=== PATIENT | female | born 1975 | race Caucasian/White ===

== ENCOUNTER 2020-05-02 00:28 | Outpatient (CLI) | payer OTHER, SELFPAY ==
[2020-05-03 01:24] LABS: SARS-CoV-2 RNA PCR Negative
== END 2020-05-02 00:29 | disposition home or self-care (01) ==
LOC: ANHCOVIDDT 00:28
PROVIDERS: PCP Nurse Practitioner; Visit Provider Surgery Plastic and Reconstructive Surgery
DX: Z01.812 Encounter for preprocedural laboratory examination (principal); Z20.828 Contact with and (suspected) exposure to other viral communicable diseases
CPT/HCPCS: 87635; C9803; U0003

== ENCOUNTER 2020-05-05 01:46 | Day surgery (SDC) | payer OTHER, SELFPAY ==
[2020-05-04 09:33] VITALS: BMI 23.3
[2020-05-05] VITALS (9 sets, daily range): BP systolic 104–128; BP diastolic 54–78; PULSE 60–99; RESP 12–20; TEMP 36.4; O2SAT 100; BMI 23.9
[2020-05-05 10:00] LABS: Urine Cotinine NEGATIVE
[2020-05-05] MEDS: LACTATED RINGERS 1,000 ML 30 ML IV CONT ×2 (10:05→15:14)
--- NOTE | 2020-05-05 10:11 | WPDANESEPPF ---
Anes - Initial Pre Proc Eval Procedure: Operation Date: 05/05/20 11:30 Proposed Procedures p Bilateral Breast Implant Exchange with Capsulectomy - Ronnie Mcghee MD s Bilateral Breast Mastopexy - Ronnie Mcghee MD Date/Time: 05/05/20 10:11 Surgeon: Ronnie Mcghee MD Pre Op Diagnosis: bilat breast implant rupture Patient Data Age: 45 Gender: F Height: 1.68 m Weight: 67.2 kg Last Vital Signs Temp 36.4 C L 05/05/20 09:47 Pulse 66 05/05/20 09:47 Resp 16 05/05/20 09:47 BP 104/54 L 05/05/20 09:47 Pulse Ox 100 05/05/20 09:47 Allergies Allergy/AdvReac Type Severity Reaction Status Date / Time No Known Allergies Allergy Verified 05/05/20 09:36 Home Medications Medication Instructions Recorded Confirmed Type levothyroxine 25 mcg tablet 25 mcg PO DAILY 03/23/20 05/05/20 History Laboratory Tests 05/05/20 09:40 Cotinine Negative Patient hx anesthesia problems: none Family hx anesthesia problems: none PMFSH Surgical History Surgical History History of breast augmentation History of Social History Social History Smoking status: Never smoker Alcohol intake: current Drinks per week: 2 Living arrangements: with family Spiritual care concerns: No Anes - Eval Final PreProcedure Day of Procedure 05/05/20 10:11 Patient weight: normal Heart: regular rate and rhythm Lungs: clear to auscultation and normal air movement Airway: Mallampati scale class II Neurological: alert and oriented Last oral intake: >/= 8 hours ASA classification: II Emergent: no Anesthetic plan: proceed Anesthesia type and monitoring: general LMA and standard monitoring Informed Consent: The patient's anesthetic plan and its attendant risks and benefits were discussed with the patient/family/POA. Questions were solicited and answers provided to the satisfaction of the patient/family/POA.
--- NOTE | 2020-05-05 11:10 | WPDHPUPDATE1 ---
History and Physical Update Update Date/Time: 05/05/20 11:10 History and Physical has been reviewed, including an updated exam of the patient. There are NO changes in the patient's condition. Risks, benefits, and alternatives have been discussed and questions answered. Patient agrees to proceed with procedure.
--- NOTE | 2020-05-05 11:33 | PM.PROC ---
Procedure Note - Detailed Date of procedure: 05/05/20 Pre-op diagnosis: bilat breast implant rupture Post-op diagnosis: same Procedure performed: Bilateral breast implant exchange with mastopexy. Description of procedure: Risks, benefits, alternatives were discussed in extensive detail. I want her to be very realistic about the risks involved as well as expectations. I was very up front honest about the complexity implant exchange for smaller implants and concurrent mastopexy. She states these are textured implants and if there are in fact textured she would want to send the capsule to pathology. She understands this will be at her charge and is above in be on the turner she has paid. All questions answered to her satisfaction today and consent obtained. She was marked in the preoperative holding area with her verification. She was taken to the operating room placed supine on the operating room table. Anesthesia was provided by anesthesiology and prepped and draped in standard sterile fashion. Surgical time-out was taken. 1% lidocaine and 0.25% Marcaine with epinephrine was used to provide a field block. Tegaderm nipple Patrick were placed. I incised vertically along the inferior aspect of the breast and dissection was continued down to the implant was identified. Bilateral implants were ruptured and removed. I irrigated with 3 liters of bacitracin containing saline on TUR tubing. I dissected removing as much of the capsule as I was able to safely. This was sent to pathology. I cauterized any remaining capsule. I then irrigated copiously with 3 L of saline solution on TUR tubing. Once I verified hemostasis irrigated with triple antibiotic Betadine solution. Using a no-touch technique and a Khan funnel the implant was introduced into the pocket. I closed using 2-0 Vicryl. I then tailor tacked the breast into place. This was limited by a significantly pre-op stretched areola from previous mastopexy in an effort to remove all residual areola. She was placed her in a sitting position. I marked out my nipple-areolar complex based on intraoperative measurements preoperative markings and observations which were in full agreement. She was placed supine. I de-epithelialized superior pedicle bilateral. She does have a history of a periareolar mastopexy which was discussed with her before and she is aware there are risks with repeat mastopexy. I then removed a central keel left breast as well as inferior tissue leaving the implant well covered. Again copiously irrigated and verified strict hemostasis. I closed using 2-0 Vicryl along the vertical as well as along the IMF followed by 3-0 strata fix IMF and 3-0 Monocryl along the vertical and around the areola. Finally closed with running subcuticular 4-0 Monocryl and tissue glue. Dressings were placed. She was awoke and taken to the PACU without difficulty. All instrument sponge counts were correct at the end of the case. Anesthesia: GLMA Surgeon: Ronnie Mcghee MD Estimated blood loss (mL): 100 Drains: No Packing: No Pathology: yes (Bilateral breast capsule) Complications: No immediate complications Condition: stable Disposition: PACU Findings: Partial capsulectomy bilateral (densely adherent to pec muscle / chest wall) Previous implants - bilateral ruptured Previous implants right: 400 left: 375 Inverted T superior pedicle mastopexy Bilateral [place] [employer] Implants Right: 320cc REF [id number] SN [id number] Left: 300cc REF [id number] SN [id number]
[2020-05-05] MEDS: ceFAZolin 2 GM/D5W 50 ML 2 GM/50 ML BAG IVPB (11:52)
[2020-05-05] MEDS: LIDO 1%/EPINEPHRINE 1:100,000 20 ML VIAL 30 ML INFILTRATE (12:42)
--- NOTE | 2020-05-05 13:01 | SUR.OPER ---
RIGHT BREAST CAPSULE LEFT BREAST CAPSULE-BOTH FOR PERMANENT PATHOLOGY
[2020-05-05] MEDS: fentaNYL CITRATE INJ (*CRX) 100 MCG/2 ML VIAL 25 MCG IV PUSH ×2 (15:39→15:44)
[2020-05-05] MEDS: oxyCODONE HCL (*CRX) 5 MG TAB IR PO (16:26)
== END 2020-05-05 17:30 | disposition home or self-care (01) ==
PROVIDERS: PCP Nurse Practitioner; Visit Provider Surgery Plastic and Reconstructive Surgery
PROC: (CPT 19342; principal; 2020-05-05 11:30)
PROC: (CPT 19316; 2020-05-05 11:30)
DX: T85.41XA Breakdown (mechanical) of breast prosthesis and implant, initial encounter (principal); Y83.8 Other surgical procedures as the cause of abnormal reaction of the patient, or of later complication, without mention of misadventure at the time of the procedure; E03.9 Hypothyroidism, unspecified
CPT/HCPCS: 19371; 19340; 80307; 88304; A9270; J0690; J1100; J1170; J1580; J2250; J2405; J2704; J3010; J7120

== ENCOUNTER → 2020-05-21 12:16 | Outpatient (REF) | payer BC, SELFPAY | LOC: ANHLAB 12:16 | PROVIDERS: PCP Nurse Practitioner; Visit Provider Surgery Plastic and Reconstructive Surgery | DX: C44.1122 Basal cell carcinoma of skin of right lower eyelid, including canthus (principal) | CPT/HCPCS: 88305 ==

== ENCOUNTER → 2020-07-06 10:21 | Outpatient (REF) | payer BC, SELFPAY | LOC: ANHLAB 10:21 | PROVIDERS: PCP Nurse Practitioner; Visit Provider Nurse Practitioner | DX: C44.1122 Basal cell carcinoma of skin of right lower eyelid, including canthus (principal) | CPT/HCPCS: 88305; 88331 ==

== ENCOUNTER → 2021-05-21 11:36 | Outpatient (CLI) | payer BC, SELFPAY ==
--- NOTE | ~2021-05-21 | XR_ITS ---
EXAMINATION: XR wrist LT 2V DATE: 05/21/2021 12:04 INDICATION: Left wrist pain TECHNIQUE: Posteroanterior and lateral views of the left wrist were obtained. COMPARISON: none FINDINGS: Bone alignment is normal. Cortical thickening along the radial side of the distal left radial diaphys is likely related to reported chronic radial fracture. No acute fracture identified. Joint spaces are normal. Ossicle near the tip of the ulnar styloid process which could represent a chronic nonunited avulsion fracture fragment, degenerative loose body or heterotopic ossicles related to chronic soft t issue injury. IMPRESSION: 1. No acute osseous abnormality. Reviewed, dictated and finalized at location B. DATION SCIENTIST
== END ==
PROVIDERS: PCP Nurse Practitioner; Visit Provider Nurse Practitioner
DX: M25.532 Pain in left wrist (principal); M67.40 Ganglion, unspecified site
CPT/HCPCS: 73100

== ENCOUNTER 2022-06-30 14:30 | Outpatient (RCR) | payer BC, SELFPAY ==
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
--- NOTE | 2022-06-15 18:00 | PCPTNOTE ---
Patient did not show up for scheduled appointment this date.
--- NOTE | 2022-06-30 15:12 | PTOPDC ---
Assessment and note entered by Lila Teixeira DPT Evaluation Information Assessment Status Discharge Subjective Information Highest pain in the last week 5/10 after twisting her knee at [employer]. Lowest pain 3/10. Overall feels that her pain has significantly decreased, her motion and ability to do ADL's has gotten a lot better. Still feels unsteady with navigating stairs. Surgery 07/07/22. Reported Pain Level Pain Score 3: Self Report Assessment PT Clinical Summary The patient has made good progress in therapy in following ACL tear and preparation for surgery. She demonstrates improved knee flexion to 129 degrees, improved balance and gait speed. Due to her progress and scheduled surgery next week, plan to discharge this case today. Plan of Care PT Services Indicated No
== END 2022-07-01 10:29 | disposition home or self-care (01) ==
LOC: ANHPT 14:30
PROVIDERS: PCP Nurse Practitioner
DX: S83.511D Sprain of anterior cruciate ligament of right knee, subsequent encounter (principal)
CPT/HCPCS: 97110; 97161; 97530

== ENCOUNTER 2022-08-19 09:45 | Outpatient (RCR) | payer BC, SELFPAY ==
--- NOTE | 2022-07-20 11:42 | PTOPEVAL1 ---
Assessment and note entered by Samuel Rosen, PT Evaluation Information Assessment Status Evaluation Diagnosis R ACL repair Onset 07/15/22 Subjective Information Patient reports she is doing okay with most activities, besides stair climbing. She is doing exercises given to her prior to surgery, mainly: straight leg lifts, heel slides with belt and wall slides, and quads sets. Reported Pain Level Pain Score 3: Self Report Assessment PT Clinical Summary Nikki is a 47 year old female coming into the clinic for a R ACL reconstruction. She has 0-3- 110 degrees of R knee active range of motion with good strength in the quads, with a little warm up on the bike can get to 120 degrees flexion. Will work on strengthening and range of motion, progressing from open chain to close chain as patient tolerates it. Patient does appear motivated. Plan of Care Interventions Electrical Stimulation,Gait Training,Hot Pack/Cold Pack,Manual Therapy,Neuro Re-education,Patient/ Caregiver Education,Therapeutic Activities, Therapeutic Exercise,Ultrasound PT Services Indicated Yes Treatment Frequency and 2x/wk for 6 weeks Duration These treatments will address the objective and functional deficits as defined above. The patient will be advanced safely and appropriately in order for the patient to progress towards his/her prior level of function. Additional exercises will be introduced and as well as a comprehensive home exercise program upon discharge, if needed, ?to ensure carryover of functional gains achieved in the clinic. This treatment plan has been reviewed and agreement upon by the patient.
--- NOTE | 2022-07-26 15:42 | PTOPPROG ---
Assessment and note entered by Samuel Rosen, PT Evaluation Information Assessment Status Progress Diagnosis R ACL repair Onset 07/15/22 Subjective Information Patient reports returning back to work yesterday and that the leg was very swollen and sore after working a full day. Patient reports prior to that had 3 great days with no issues sleeping and feeling the knee was cooperating well. Self reports she has been taking the steps sidestepping . Instructed her to do straight away even if she has to do single steps at a time. Assessment PT Clinical Summary Nikki is a 47 year old female coming into the clinic for a R ACL repair surgery. She has 1-0- 121 active degrees once she loosens up. Will start progressing into more standing exercises and working on step ups, terminal knee extension with light thera band, and squats. Plan of Care Interventions Electrical Stimulation,Gait Training,Hot Pack/Cold Pack,Manual Therapy,Neuro Re-education,Patient/ Caregiver Education,Therapeutic Activities, Therapeutic Exercise,Ultrasound Other Interventions taping PT Services Indicated Yes These treatments will address the objective and functional deficits as defined above. The patient will be advanced safely and appropriately in order for the patient to progress towards his/her prior level of function. Additional exercises will be introduced and as well as a comprehensive home exercise program upon discharge, if needed, ?to ensure carryover of functional gains achieved in the clinic. This treatment plan has been reviewed and agreement upon by the patient.
--- NOTE | 2022-08-03 08:52 | PCPTNOTE ---
discussed pt with Samuel Baer PT; intermittent compression pump added to plan of treatment for pt;
--- NOTE | 2022-08-23 09:18 | PTOPDC ---
Assessment and note entered by Samuel Rosen, PT Evaluation Information Assessment Status Discharge - Pt Not Presen Diagnosis R ACL repair Onset 07/15/22 Subjective Information Patient reports returning back to work yesterday and that the leg was very swollen and sore after working a full day. Patient reports prior to that had 3 great days with no issues sleeping and feeling the knee was cooperating well. Self reports she has been taking the steps sidestepping . Instructed her to do straight away even if she has to do single steps at a time. Assessment PT Clinical Summary Nikki is a 47 year old female coming into the clinic with a diagnosis of R ACL repair on 07/15/22. She was evaluated on 07/20/22 and has attended 9 physical therapy sessions. Physical therapist recieves a phone message that she is cancelling all remaining sessions and going to a clinic with blood flow restriction therapy. Discharged from skilled physical therapy. Plan of Care PT Services Indicated Yes
== END 2022-08-23 15:25 | disposition home or self-care (01) ==
LOC: ANHPT 09:45
PROVIDERS: PCP Nurse Practitioner
DX: Z48.89 Encounter for other specified surgical aftercare (principal); Z98.890 Other specified postprocedural states
CPT/HCPCS: 97016; 97110; 97112; 97140; 97161; 97530

== ENCOUNTER 2022-08-19 12:42 | Outpatient (CLI) | payer BC, SELFPAY ==
[2022-08-19 13:13] LABS: Basophils Absolute Auto 0.1 K/mm3 (0.0-0.1); Basophils Percent Auto 1.4 % (0.2-1.2); Eosinophils Absolute Auto 0.1 K/mm3 (0-0.3); Hematocrit 39.4 % (37.0-47.0); Hemoglobin 12.9 g/dL (12.0-15.0); Immature Granulocyte Absolute 0.01 K/mm3 (0.00-0.031); Immature Granulocyte Percent A 0.2 % (0-0.5); Lymphocytes Absolute Auto 0.98 K/mm3 (0.9-3.2); Lymphocytes Percent Auto 19.7 % (18.3-44.2); Mean Corpuscular HGB Conc 32.7 g/dl (32-36); Mean Corpuscular Hemoglobin 30.6 pg (26-34); Mean Corpuscular Volume 93.6 fl (80-100); Mean Platelet Volume 10.2 fl (7.4-10.4); Monocytes Absolute Auto 0.5 K/mm3 (0.1-0.6); Monocytes Percent Auto 9.1 % (2.6-8.5); Neutrophils Absolute Auto 3.4 K/mm3 (1.3-6.7); Neutrophils Percent Auto 67.6 % (45.5-73.1); Platelet Count Result 249 k/mm3 (150-375); Red Blood Count 4.21 M/mm3 (4.2-5.4); Red Cell Distribution Width 12.4 % (11.5-14.5)
[2022-08-19 13:16] LABS: Appearance Urine Clear (Clear); Bacteria Urine Rare /hpf; Bilirubin Urine Negative (Negative); Blood Urine 1+ (Negative); Color Urine Yellow (Yellow); Glucose Urine UA Negative (Negative); Ketones Urine Trace mg/dL (Negative); Leukocyte Esterase Ur Negative LEU/UL (Negative); Nitrate Urine Negative (Negative); Non Pathogenic Casts 0-2; Protein Urine Negative (Negative); Specific Grav Ur 1.023 (1.001-1.035); Squamous Epithelial Cell Urine None seen /hpf (Few); Urobilinogen Urine 0.2 mg/dL (<2.0); WBC Urine 0-5 /hpf; pH Urine 5.5 (5.0-9.0)
[2022-08-19 13:25] LABS: Alanine Aminotransferase 19 U/L (6-35); Albumin Level 4.6 g/dL (3.5-5.1); Alkaline Phosphatase 39 U/L (38-126); Anion Gap 5 mmol/L (8-16); Aspartate Amino Transferase 27 U/L (14-36); Bilirubin,Total 1.5 mg/dL (0.2-1.3); Blood Urea Nitrogen 13 mg/dL (7-17); Calcium 9.1 mg/dL (8.4-10.2); Carbon Dioxide 30 mmol/L (22-30); Chloride 104 mmol/L (98-107); Cholesterol 149 mg/dL (0-200); Estimated Glomerular Filt Rate > 60; Glucose 87 mg/dL (65-110); HDL Direct 57 mg/dL; Potassium 4.1 mmol/L (3.4-5.0); Sodium 139 mmol/L (137-145); Triglycerides 58 mg/dL (<150)
[2022-08-19 13:36] LABS: LDL Cholesterol Direct 68 mg/dL
[2022-08-19 13:44] LABS: Free T4 Free Thyroxine 0.85 ng/mL (0.78-2.19); Vitamin D 25 Hydroxy 44.5 ng/mL
[2022-08-19 14:55] LABS: Add Urine Microscopic? YES
== END 2022-08-19 12:43 | disposition home or self-care (01) ==
PROVIDERS: PCP Internal Medicine; Visit Provider Internal Medicine
DX: Z79.899 Other long term (current) drug therapy (principal); E03.9 Hypothyroidism, unspecified; Z13.220 Encounter for screening for lipoid disorders; Z13.1 Encounter for screening for diabetes mellitus; E55.9 Vitamin D deficiency, unspecified
CPT/HCPCS: 36415; 80053; 80061; 81001; 82306; 83036; 84439; 84443; 85025

== ENCOUNTER 2022-08-22 14:54 | Outpatient (CLI) | payer BC, SELFPAY ==
--- NOTE | ~2022-08-22 | US_ITS ---
EXAMINATION: US thyroid DATE: 08/22/2022 15:36 INDICATION: Hypothyroidism, unspecified. TECHNIQUE: Multiple ultrasound images of the thyroid were obtained. COMPARISON: None. FINDINGS: The right thyroid lobe measures 5.3 x 2.1 x 2.1 cm. The left thyroid lobe measures 4.6 x 1.8 x 1.7 c m. The thyroid demonstrates heterogeneous echogenicity and increased vascularity. In the right thyro id lobe, there is a 9 mm solid, hypoechoic, wider than tall nodule with smooth margin without echogen ic foci (TI-RADS TR4). In the left thyroid lobe, there is a 16 mm solid, hypoechoic, wider than tall nodule with smooth margin without echogenic foci (TR4). IMPRESSION: 1. Heterogeneous, hypervascular thyroid, consistent with chronic lymphocytic (Ofelia) thyroiditis. 2. Thyroid nodules. Ultrasound-guided fine-needle aspiration of the 16 mm left thyroid nodule is yola mmended. Reviewed, dictated and finalized at location A. IMPRESSION: 1. Heterogeneous, hypervascular thyroid, consistent with chronic lymphocytic (H ashimoto) thyroiditis. 2. Thyroid nodules. Ultrasound-guided fine-needle aspiration of the 16 mm left thyroid nodule is recommended.
== END 2022-08-22 14:55 | disposition home or self-care (01) ==
PROVIDERS: PCP Internal Medicine; Visit Provider Internal Medicine
DX: E04.2 Nontoxic multinodular goiter (principal)
CPT/HCPCS: 76536

== ENCOUNTER 2022-08-23 13:26 | Outpatient (CLI) | payer BC, SELFPAY ==
[2022-08-26 06:08] LABS: Thyroglobulin Antibodies 4 IU/mL (<=1); Thyroid Peroxidase Antibodies 97 IU/mL (<9)
== END 2022-08-23 13:27 | disposition home or self-care (01) ==
LOC: ANHLAB 13:28
PROVIDERS: PCP Internal Medicine; Visit Provider Internal Medicine
DX: E03.9 Hypothyroidism, unspecified (principal); Z79.899 Other long term (current) drug therapy
CPT/HCPCS: 36415; 84432; 86376; 86800

== ENCOUNTER 2022-08-29 14:45 | Outpatient (CLI) | payer BC, SELFPAY ==
--- NOTE | ~2022-08-29 | CT_ITS ---
EXAMINATION: CT abdomen pelvis wo con DATE: 08/29/2022 15:32 INDICATION: Hematuria TECHNIQUE: Computed tomography (CT) of the abdomen and pelvis was performed without intravenous contr ast. Automated exposure control and iterative reconstruction technique were employed. Exam dose: 636 .93 mGy-cm total exam DLP. COMPARISON: None. FINDINGS: Status post bilateral augmentation mammoplasty. Minimal discoid atelectasis or scarring at the lung bases. Heart size is within normal range. No nitza cardial or pleural effusion. The gallbladder is contracted. No bile duct or pancreatic duct dilatation. No hepatic, splenic, pancr eatic, and adrenal or renal space-occupying mass lesion is evident. No urinary tract calculus or hydroureteronephrosis. There is an IUD within the uterus. The adnexal areas appear normal. The urinary bladder is unremarkab le. Normal appendix. No bowel obstruction, bowel wall thickening, pneumatosis or intraperitoneal free air . Normal caliber of the abdominal aorta. No intraperitoneal or retroperitoneal or pelvic mass lesion or adenopathy or ascites. No suspicious osteolytic or osteoblastic lesions. Moderately severe L2-3 degenerative disc disease wi th prominent superior L3 Schmorl's node. Mild disease and retrolisthesis at L3-4, L4-5 and L5-S1. IMPRESSION: No urinary tract calculus or hydroureteronephrosis or urinary tract mass lesion is evide nt on this limited noncontrast examination Normal appendix IUD within uterus Reviewed, dictated and finalized at Location A. Reviewed, dictated and finalized at location B. IMPRESSION: No urinary tract calculus or hydroureteronephrosis or urinary trac t mass lesion is evident on this limited noncontrast examination Normal appendix IUD within uterus
== END 2022-08-29 14:46 | disposition home or self-care (01) ==
PROVIDERS: PCP Internal Medicine; Visit Provider Internal Medicine
DX: R31.9 Hematuria, unspecified (principal); Z97.5 Presence of (intrauterine) contraceptive device
CPT/HCPCS: 74176

== ENCOUNTER 2022-09-14 11:01 | Emergency (ER) | payer BC, SELFPAY ==
--- NOTE | ~2022-09-14 | US_ITS ---
EXAMINATION: US venous doppler LE RT DATE: 09/14/2022 11:45 INDICATION: Right calf pain and swelling. TECHNIQUE: Grayscale ultrasound images without and with compression and Doppler ultrasound images of the right lower extremity veins were obtained. COMPARISON: None. FINDINGS: The visualized portions of right common femoral vein, profunda (deep) femoral vein, femoral vein, pop liteal vein, peroneal veins, posterior tibial veins, and greater saphenous vein outflow are patent. IMPRESSION: 1. No deep venous thrombosis. Reviewed, dictated and finalized at location A.
[2022-09-14 11:09] VITALS: BP 111/50; PULSE 67; RESP 14; TEMP 36.5; O2SAT 100
--- NOTE | 2022-09-14 11:56 | ED.EXTPRO ---
HPI - Extremity Problem General Chief complaint: Extremity Problem,Nontraumatic <Larykrystal Jara APRN - Last Filed: 09/14/22 12:25> Stated complaint: right calf pain and swelling - recent ACL repair <Lary Jara APRN - Last Filed: 09/14/22 12:25> Time Seen by Provider: 09/14/22 11:17 <Lary Jara APRN - Last Filed: 09/14/22 12:25> Source: patient <Lary aKy Jara APRN - Last Filed: 09/14/22 12:25> Mode of arrival: ambulatory <Lary Jara APRN - Last Filed: 09/14/22 12:25> Limitations: no limitations <Lary Jara APRN - Last Filed: 09/14/22 12:25> History of Present Illness HPI Narrative: 47-year-old female presents today with complaints of right calf swelling and tenderness. Patient with ACL surgery about [address] [facility]. She has been having physical therapy twice a week since. Denies any new knee pain or any new injury. States the swelling started Monday she has elevated and iced the extremity. Saw PT today who recommended she get evaluated for a blood clot. Per patient she has had tenderness to the calf for a while and she is unsure how long just the swelling was new. Denies any chest pain, shortness of breath, tachycardia. No other concerns at this time. Wells' Criteria for DVT from [email or web address] on 09/14/2022 All calculations should be rechecked by clinician prior to use RESULT SUMMARY: 2 points Moderate risk group for DVT. See Next Steps for details. INPUTS: Active cancer ?> 0 = No Bedridden recently >3 days or major surgery within 12 weeks ?> 1 = Yes Calf swelling >3 cm compared to the other leg ?> 1 = Yes Collateral (nonvaricose) superficial veins present ?> 0 = No Entire leg swollen ?> 0 = No Localized tenderness along the deep venous system ?> 0 = No Pitting edema, confined to symptomatic leg ?> 0 = No Paralysis, paresis, or recent plaster immobilization of the lower extremity ?> 0 = No Previously documented DVT ?> 0 = No Alternative diagnosis to DVT as likely or more likely ?> 0 = No <Lary Jara APRN - Last Filed: 09/14/22 12:25> MD Complaint: extremity pain and extremity swelling <Lary Jara APRN - Last Filed: 09/14/22 12:25> Location: right and lower extremity <Lary Jara APRN - Last Filed: 09/14/22 12:25> Quality: aching <Lary Jara APRN - Last Filed: 09/14/22 12:25> Radiation: none <Lary Jara APRN - Last Filed: 09/14/22 12:25> Relieving factors: nothing <Lary Jara APRN - Last Filed: 09/14/22 12:25> Related Data Allergies/Adverse reactions: Allergies Allergy/AdvReac Type Severity Reaction Status Date / Time No Known Allergies Allergy Verified 09/14/22 11:17 <Lary Jara APRN - Last Filed: 09/14/22 12:25> Review of Systems Review of Systems: CONSTITUTIONAL: Denies fever, chills, or sweats. CARDIOVASCULAR: Denies chest pain, palpitations, or edema. RESPIRATORY: Denies cough or dyspnea. GASTROINTESTINAL: Denies abdominal pain, nausea, vomiting, or diarrhea. GENITOURINARY: Denies dysuria or hematuria. SKIN: Denies rash or itching. MUSCULOSKELETAL: Right calf swelling with tenderness. <Lary Jara APRN - Last Filed: 09/14/22 12:25> [facility] Past Medical History Medical History: Medical History Adult BMI 25.0-25.9 kg/sq m BMI 24.0-24.9, adult Colon cancer screening Encounter for preventive health examination Encounter to establish care Hypothyroidism (acquired) On terminal superintendent drug therapy Thyroid Nodule <Lary Jara APRN - Last Filed: 09/14/22 12:25> Surgical History Surgical History: Surgical History History of breast augmentation History of S/P ACL repair <Lary Jara APRN - Last Filed: 09/14/22 12:25> Social History Social History: Social History (Reviewed 09/12/22 @ 07:15 by Katey Warner,
== END 2022-09-14 12:15 | disposition home or self-care (01) ==
LOC: ANHED 12:12
PROVIDERS: Emergency Provider Nurse Practitioner Family; PCP Internal Medicine
DX: R22.41 Localized swelling, mass and lump, right lower limb (principal); E03.9 Hypothyroidism, unspecified
CPT/HCPCS: 93971; 99284

== ENCOUNTER 2022-10-03 12:14 | Outpatient (CLI) | payer BC, SELFPAY ==
--- NOTE | ~2022-10-03 | US_ITS ---
EXAMINATION: US FNA w image guidance DATE: 10/03/2022 13:19 INDICATION: Nontoxic single thyroid nodule. TECHNIQUE: The procedure and its benefits and risks were discussed with the patient. Risks specifically discusse d included bleeding. The patient verbalized understanding of the risks and agreed to proceed. The nec k was prepped and draped in the usual sterile manner. 1% lidocaine was used for local anesthesia. 6 passes were made with a 25G needle into the lesion under ultrasound guidance. There were no immedia te complications. FINDINGS: Grayscale ultrasound images demonstrate needles advanced into a 16 mm nodule in left thyroid lobe for biopsy. IMPRESSION: 1. Ultrasound-guided fine needle aspiration of a left thyroid nodule. Reviewed, dictated and finalized at location A.
== END 2022-10-03 12:15 | disposition home or self-care (01) ==
PROVIDERS: PCP Internal Medicine; Visit Provider Otolaryngology
DX: E04.1 Nontoxic single thyroid nodule (principal)
CPT/HCPCS: 10005; 88173; 88305

== ENCOUNTER 2023-01-25 12:40 | Outpatient (CLI) | payer BC, SELFPAY ==
--- NOTE | ~2023-01-25 | US_ITS ---
EXAMINATION: US FNA w image guidance DATE: 01/25/2023 13:37 INDICATION: Nontoxic single thyroid nodule. TECHNIQUE: The procedure and its benefits and risks were discussed with the patient. Risks specifically discusse d included bleeding. The patient verbalized understanding of the risks and agreed to proceed. The nec k was prepped and draped in the usual sterile manner. 1% lidocaine was used for local anesthesia. 6 passes were made with a 25G needle into the lesion under ultrasound guidance. There were no immedia te complications. FINDINGS: Grayscale ultrasound images demonstrate needles advanced into a 1.7 cm nodule in left thyroid lobe fo r biopsy. IMPRESSION: 1. Ultrasound-guided fine needle aspiration of a left thyroid nodule. Reviewed, dictated and finalized at location A.
== END 2023-01-25 12:41 | disposition home or self-care (01) ==
LOC: ANHIMG 12:42
PROVIDERS: PCP Internal Medicine; Visit Provider Otolaryngology
DX: E04.1 Nontoxic single thyroid nodule (principal)
CPT/HCPCS: 10005; 88173; 88305

== ENCOUNTER 2023-02-03 11:46 | Outpatient (CLI) | payer BC, SELFPAY | END 2023-02-03 11:47 | disposition home or self-care (01) | LOC: ANHLAB 11:47 | PROVIDERS: PCP Internal Medicine; Visit Provider Internal Medicine | DX: E03.9 Hypothyroidism, unspecified (principal) | CPT/HCPCS: 36415; 84439; 84443 ==

== ENCOUNTER 2023-03-17 13:14 | Outpatient (CLI) | payer BC, SELFPAY ==
--- NOTE | ~2023-03-17 | US_ITS ---
US soft tissue UE LT 03/17/2023 13:40 Indication: Left volar wrist mass Procedure: High-resolution Limited soft tissue ultrasound of the left wrist laterally in the area of palpable concern Comparison: No prior studies for comparison. Findings: There is fluid in the soft tissues in the area of palpable concern without discrete walled off fluid collection to suggest cyst or abscess. Surrounding soft tissues are unremarkable. Impression: 1: Soft tissue fluid in the area of palpable concern of the left wrist without discrete mass. Reviewed, dictated and finalized at location A. Impression: 1: Soft tissue fluid in the area of palpable concern of the left wrist without discrete mass.
== END 2023-03-17 13:15 ==
LOC: GOSHIMG 13:16
PROVIDERS: PCP Internal Medicine; Visit Provider Plastic Surgery
DX: M67.432 Ganglion, left wrist (principal)
CPT/HCPCS: 76882

== ENCOUNTER 2023-05-05 02:56 | Day surgery (SDC) | payer BC, SELFPAY ==
[2023-05-02 12:16] VITALS: BMI 24.2
--- NOTE | 2023-05-02 12:20 | PC.NURSE ---
Report to the Outpatient Waiting Room, entrance under the green pavilion located off [facility], at time 0930 on date 05/05/23. Planned Procedure Time: 1130. Time changes happen often and if your time is changed the preop area will call you the afternoon before. - You and your visitor will be asked to self-screen and do not enter if you have any COVID symptoms. - A mask is optional within the hospital at this time. Patients may have clear liquids (water, carbonated beverages, clear teas, apple juice) until 3 hours prior to surgery with a maximum of 20 ounces. - No food from midnight until time of surgery Take the following medications with a SIP of water the morning of surgery: LEVOTHYROXINE DO NOT STOP ANY OF YOUR OTHER PRESCRIPTION MEDICATIONS PRIOR TO SURGERY ?EXCEPT THE FOLLOWING Medications to discontinue per physician: N/A Date to take last dose: N/A Please no make-up, nail maltese, hairspray, perfume, deodorant, or body powder the day of surgery. No jewelry (including any body piercings) or valuables the day of surgery, leave them at home. Please take a shower or bath the night before, or the morning of, surgery with an antibacterial soap. Wear comfortable, loose fitting clothing. - Jewelry must be removed prior to entering the operating room. Rings and piercings that are not removed may be cut off. - The hospital will not accept responsibility for valuables. - Please leave all valuables, including medications, at home the day of surgery. If you are going home after surgery, a licensed log driver must drive you home. - NO public transportation without another adult if you receive anesthesia. - We recommend that an adult stay with you for 24 hours following discharge. - We also recommend that you do not drive, make important decision, drink alcoholic beverages, or take any drugs that were not prescribed by your health care provider for at least 24 hours after your discharge time. Follow any additional instructions given to you from your surgeon. If you or anyone in your household have experienced Covid symptoms in the past week, please notify your surgeon or the nurse liaison at the phone number below for possible testing. Telephone instructions given to PT - RAYO SOTO and asked if any additional questions and then verbalized understanding. Patient advised to call surgeon office or pre surgery nurse liaison [phone] if any additional questions.
--- NOTE | 2023-05-02 12:24 | PC.NURSE ---
Report to the Outpatient Waiting Room, entrance under the green pavilion located off [facility], at time 0930 on date 05/05/23. Planned Procedure Time: 1130. Time changes happen often and if your time is changed the preop area will call you the afternoon before. - You and your visitor will be asked to self-screen and do not enter if you have any COVID symptoms. - A mask is optional within the hospital at this time. Patients may have clear liquids (water, carbonated beverages, clear teas, apple juice) until 8 hours prior to surgery with a maximum of 20 ounces. - No food from midnight until time of surgery Take the following medications with a SIP of water the morning of surgery: LEVOTHYROXINE DO NOT STOP ANY OF YOUR OTHER PRESCRIPTION MEDICATIONS PRIOR TO SURGERY ?EXCEPT THE FOLLOWING Medications to discontinue per physician: N/A Date to take last dose: N/A Please no make-up, nail austrian, hairspray, perfume, deodorant, or body powder the day of surgery. No jewelry (including any body piercings) or valuables the day of surgery, leave them at home. Please take a shower or bath the night before, or the morning of, surgery with an antibacterial soap. Wear comfortable, loose fitting clothing. - Jewelry must be removed prior to entering the operating room. Rings and piercings that are not removed may be cut off. - The hospital will not accept responsibility for valuables. - Please leave all valuables, including medications, at home the day of surgery. If you are going home after surgery, a licensed school bus driver/teacher assistant must drive you home. - NO public transportation without another adult if you receive anesthesia. - We recommend that an adult stay with you for 24 hours following discharge. - We also recommend that you do not drive, make important decision, drink alcoholic beverages, or take any drugs that were not prescribed by your health care provider for at least 24 hours after your discharge time. Follow any additional instructions given to you from your surgeon. If you or anyone in your household have experienced Covid symptoms in the past week, please notify your surgeon or the nurse liaison at the phone number below for possible testing. Telephone instructions given to PT - RAYO SOTO and asked if any additional questions and then verbalized understanding. Patient advised to call surgeon office or pre surgery nurse liaison [phone] if any additional questions.
--- NOTE | 2023-05-05 06:57 | PM.HPGS ---
History of Present Illness History of Present Illness Chief complaint: ganglion cyst left wrist Narrative: Patient seen and examined in pre-operative holding area. No interval change in medical history or symptoms. Patient recalls previous discussion of benefits and alternatives to procedure. Continues to desire to proceed with left volar wrist ganglion cyst excision . Reviewed procedure, post-op expectations and risks including but not limited to bleeding, infection, injury to tendon/nerve/vessel, decreased hand function, stiffness, recurrence, RSD, no change or worsening of symptoms. I discussed the possible use of assistants and their participation in the case. Patient stated understanding and signed the consent form wishing to proceed. Review of Systems Review of Systems: All systems reviewed & are unremarkable except as noted in HPI and below PMFSH Past Medical History Medical History (Updated 03/27/23 @ 07:23 by Katey Warner IRB COMPLIANCE COORDINATOR) Adult BMI 25.0-25.9 kg/sq m BMI 24.0-24.9, adult Colon cancer screening Encounter for preventive health examination Encounter for routine adult health examination without abnormal findings Encounter to establish care Hypothyroidism (acquired) Lump of left wrist On oil heaterman drug therapy Thyroid Nodule URI (upper respiratory infection) Surgical History Surgical History History of breast augmentation History of S/P ACL repair Social History Social History Smoking status: Former smoker Tobacco type: cigarettes Second hand tobacco smoke exposure: No Additional smoking assessment comments: SMOKED IN LATE TEENS Alcohol intake: current Drinks per week: 1 Substance use: never Substance use type: does not use Lack of Transportation: No Lack of Food: Never True Current Housing: I Have Housing Concerned About Future Housing: No Difficulty Paying Gas/Electric Bills: No Difficulty Paying for Meds: No Currently Unemployed: No Education: Bachelor's Degree Difficulty w/ Childcare or Family Care: No Living arrangements: with family Occupation/Education: occupation Gender identity (if verbalized by the patient): Female Spiritual care concerns: No Meds Home Medications and Allergies Home Medications Medication Instructions Recorded Confirmed Type levothyroxine 75 mcg tablet 75 mcg PO DAILY #90 tabs 08/31/22 05/02/23 Rx Allergies Allergy/AdvReac Type Severity Reaction Status Date / Time No Known Allergies Allergy Verified 05/02/23 12:15 Exam Narrative: unchanged Assessment and Plan Assessment and plan (1) Ganglion cyst of volar aspect of left wrist: Code(s): M67.432 - Ganglion, left wrist Status: Acute Assessment and Plan: as above
--- NOTE | 2023-05-05 06:58 | W.PM.PROC2 ---
Procedure Note - Detailed Date of Procedure 05/05/23 Pre-op Diagnosis ganglion cyst left wrist Post-op Diagnosis Same Procedure Performed left volar wrist ganglion cyst excision Surgeon Vera Gan MD Anesthesia MAC Description of Procedure INFORMED CONSENT: The patient was seen and examined and marked in the pre-op area.? The patient signed the consent form. PROCEDURE IN DETAIL:The patient taken back to OR on the stretcher in supine position. Time out performed with anesthesia, surgeon and staff agreeing on patient's name site and surgery to be performed SCDs were placed on the lower extremities and inflated. A tourniquet was placed on {left} upper extremity and antibiotics given IV After anesthesia administered sedation I injected {6}cc 1%lido with epi and 0.5% marcaine plain at the operative site The?{left upper extremity}?was prepped and draped in sterile fashion the??{left upper extremity} was? exsanguinated with Esmarch bandage proximal to the mass and tourniquet inflated to 250mmHg I proceeded with making a longitudinal incision over the left volar wrist ganglion through skin and dermis with a 15 blade scalpel. Littler Scissors were used to spread down the cyst. I proceeded with circumferential dissection around cyst down to joint capsule where it was transected. the radial artery was protected throughout the procedure. I irrigated with normal saline and bipolar cautery around base of cyst. I repaired capsule defect with 4-0 vicryl suture. Skin was closed with 4-0 monocryl for dermis and subcuticular closure. A dressing of Dermabond, 4x4, star, and a volar splint was applied for patient safety, security, and comfort and secured with an alaina bandage after the tourniquet was let down noting the hand was warm and well perfused. The patient was then awaken from anesthesia and transferred to the recovery room in stable condition.? Complications - none EBL- 2cc Disposition - home in stable conditions [facility] Billing Surgery - Charge Forward: Surgery Billing ([id number])
[2023-05-05] MEDS: LACTATED RINGERS 1,000 ML 30 ML IV CONT (09:30)
[2023-05-05 09:40] VITALS: BP 98/49; PULSE 71; RESP 16; TEMP 36.6; O2SAT 100
--- NOTE | 2023-05-05 09:53 | P.PNAN_ITS ---
Anes - Initial Pre Proc Eval Procedure: Operation Date: 05/05/23 11:15 Proposed Procedures p Excision Ganglion Cyst Volar Aspect Left Wrist - Vera Gan MD Date/Time: 05/05/23 09:53 Surgeon: Vera Gan MD Pre Op Diagnosis: ganglion cyst left wrist Patient Data Age: 48 Gender: F Height: 1.68 m Weight: 68.05 kg Allergies Allergy/AdvReac Type Severity Reaction Status Date / Time No Known Allergies Allergy Verified 05/02/23 12:15 Home Medications Medication Instructions Recorded Confirmed Type levothyroxine 75 mcg tablet 75 mcg PO DAILY #90 tabs 08/31/22 05/02/23 Rx Patient hx anesthesia problems: none Family hx anesthesia problems: none Results Review: All pre-operative results and documents have been reviewed as part of the pre- operative evaluation. [facility] Past Medical History Medical History Adult BMI 25.0-25.9 kg/sq m BMI 24.0-24.9, adult Colon cancer screening Encounter for preventive health examination Encounter for routine adult health examination without abnormal findings Encounter to establish care Hypothyroidism (acquired) Lump of left wrist On administrative assistant coordinator drug therapy Thyroid Nodule URI (upper respiratory infection) Surgical History Surgical History History of breast augmentation History of S/P ACL repair Social History Social History Smoking status: Former smoker Tobacco type: cigarettes Second hand tobacco smoke exposure: No Additional smoking assessment comments: SMOKED IN LATE TEENS Alcohol intake: current Drinks per week: 1 Substance use: never Substance use type: does not use Lack of Transportation: No Lack of Food: Never True Current Housing: I Have Housing Concerned About Future Housing: No Difficulty Paying Gas/Electric Bills: No Difficulty Paying for Meds: No Currently Unemployed: No Education: Bachelor's Degree Difficulty w/ Childcare or Family Care: No Living arrangements: with family Occupation/Education: occupation Gender identity (if verbalized by the patient): Female Spiritual care concerns: No Anes - Eval Final PreProcedure Day of Procedure 12/22/23 09:53 Patient weight: normal Heart: regular rate and rhythm Lungs: clear to auscultation Airway: Mallampati scale class II Neurological: alert and oriented Last oral intake: >/= 8 hours ASA classification: II Emergent: no Anesthetic plan: proceed Anesthesia type and monitoring: general GIVS and standard monitoring Results Review: All pre-operative results and documents have been reviewed as part of the pre- operative evaluation. Informed Consent: The patient's anesthetic plan and its attendant risks and benefits were discussed with the patient/family/POA. Questions were solicited and answers provided to the satisfaction of the patient/family/POA.
[2023-05-05] MEDS: ceFAZolin 2 GM/D5W 50 ML 2 GM/50 ML BAG IVPB (10:10)
[2023-05-05] MEDS: LIDO 1%/EPINEPHRINE 1:100,000 50 ML VIAL INFILTRATE (10:31)
[2023-05-05 10:44] VITALS: BP 102/49; PULSE 88; RESP 18; O2SAT 100
[2023-05-05 11:00] VITALS: BP 97/74; PULSE 68; RESP 16
== END 2023-05-05 11:30 | disposition home or self-care (01) ==
PROVIDERS: PCP Internal Medicine; Visit Provider Plastic Surgery
PROC: (CPT 25111; principal; 2023-05-05 11:15)
DX: M67.432 Ganglion, left wrist (principal); E03.9 Hypothyroidism, unspecified; Z87.891 Personal history of nicotine dependence
CPT/HCPCS: 25111; 88305; A9270; J0690; J2250; J2704; J3010; J7120

== ENCOUNTER 2023-06-16 10:42 | Outpatient (CLI) | payer BC, SELFPAY ==
--- NOTE | ~2023-06-16 | US_ITS ---
EXAMINATION: US soft tissue lower back DATE: 06/16/2023 11:20 INDICATION: Localized swelling, mass and lump, trunk. TECHNIQUE: Multiple grayscale and Doppler ultrasound images of the lower back were obtained. COMPARISON: CT abdomen and pelvis 08/29/2022 FINDINGS: In the right chest wall and right lower back, there are 2 areas of prominent normal subcuta neous fat. IMPRESSION: 1. Normal subcutaneous fat in the patient's areas of concern in right chest wall and right lower back . Reviewed, dictated and finalized at location E. SFER AND PUMPHOUSE OPERATOR IMPRESSION: 1. Normal subcutaneous fat in the patient's areas of concern in right chest wal l and right lower back.
== END 2023-06-16 10:43 | disposition home or self-care (01) ==
PROVIDERS: PCP Internal Medicine; Visit Provider Internal Medicine
DX: R22.2 Localized swelling, mass and lump, trunk (principal)
CPT/HCPCS: 76705

== ENCOUNTER 2023-09-15 11:00 | Outpatient (CLI) | payer BC, SELFPAY ==
[2023-09-15 11:23] LABS: Basophils Percent Auto 1.7 % (0.2-1.2); Eosinophils Absolute Auto 0.1 K/mm3 (0-0.3); Eosinophils Percent Auto 3.3 % (0-4.4); Hematocrit 38.6 % (37.0-47.0); Hemoglobin 12.8 g/dL (12.0-15.0); Immature Granulocyte Absolute 0.01 K/mm3 (0.00-0.031); Immature Granulocyte Percent A 0.4 % (0-0.5); Lymphocytes Absolute Auto 0.94 K/mm3 (0.9-3.2); Mean Corpuscular HGB Conc 33.2 g/dl (32-36); Mean Corpuscular Hemoglobin 30.9 pg (26-34); Mean Corpuscular Volume 93.2 fl (80-100); Mean Platelet Volume 10.1 fl (7.4-10.4); Monocytes Absolute Auto 0.3 K/mm3 (0.1-0.6); Monocytes Percent Auto 14.1 % (2.6-8.5); Neutrophils Percent Auto 41.5 % (45.5-73.1); Platelet Count Result 200 k/mm3 (150-375); Red Blood Count 4.14 M/mm3 (4.2-5.4); Red Cell Distribution Width 12.4 % (11.5-14.5); White Blood Count 2.4 K/mm3 (4.5-10.0)
[2023-09-15 11:31] LABS: Hemoglobin A1C 5.2 % (<5.7)
[2023-09-15 11:35] LABS: Alanine Aminotransferase 20 U/L (6-35); Albumin Level 4.4 g/dL (3.5-5.1); Alkaline Phosphatase 45 U/L (38-126); Anion Gap 4 mmol/L (4-12); Aspartate Amino Transferase 26 U/L (14-36); Blood Urea Nitrogen 11 mg/dL (7-17); Calcium 9.1 mg/dL (8.4-10.2); Carbon Dioxide 29 mmol/L (22-30); Chloride 107 mmol/L (98-107); Cholesterol 124 mg/dL (0-200); Estimated Glomerular Filt Rate > 60; Glucose 97 mg/dL (65-110); HDL Direct 52 mg/dL; Potassium 3.9 mmol/L (3.4-5.0); Sodium 140 mmol/L (137-145); Triglycerides 89 mg/dL (<150)
[2023-09-15 11:46] LABS: LDL Cholesterol Direct 63 mg/dL
[2023-09-15 11:55] LABS: Free T4 Free Thyroxine 1.37 ng/mL (0.78-2.19); Vitamin D 25 Hydroxy 39.5 ng/mL
[2023-09-18 12:57] LABS: Folic Acid 13.1 ng/mL (2.76->20)
== END 2023-09-15 11:01 | disposition home or self-care (01) ==
LOC: ANHLAB 11:02
PROVIDERS: PCP Internal Medicine; Visit Provider Internal Medicine
DX: E55.9 Vitamin D deficiency, unspecified (principal); Z79.899 Other long term (current) drug therapy; Z13.220 Encounter for screening for lipoid disorders; E03.9 Hypothyroidism, unspecified; Z13.1 Encounter for screening for diabetes mellitus; R53.83 Other fatigue
CPT/HCPCS: 36415; 80053; 80061; 82306; 82607; 82746; 83036; 84439; 84443; 85025; 86038

== ENCOUNTER 2023-12-20 17:00 | Outpatient (CLI) | payer BC, SELFPAY ==
[2023-12-20 17:33] LABS: Basophils Absolute Auto 0.1 K/mm3 (0.0-0.1); Basophils Percent Auto 0.9 % (0.2-1.2); Eosinophils Absolute Auto 0.2 K/mm3 (0-0.3); Hemoglobin 12.4 g/dL (12.0-15.0); Immature Granulocyte Absolute 0.01 K/mm3 (0.00-0.031); Immature Granulocyte Percent A 0.2 % (0-0.5); Lymphocytes Absolute Auto 1.49 K/mm3 (0.9-3.2); Lymphocytes Percent Auto 28.3 % (18.3-44.2); Mean Corpuscular HGB Conc 31.8 g/dl (32-36); Mean Corpuscular Hemoglobin 30.3 pg (26-34); Mean Corpuscular Volume 95.4 fl (80-100); Mean Platelet Volume 10.5 fl (7.4-10.4); Monocytes Absolute Auto 0.5 K/mm3 (0.1-0.6); Monocytes Percent Auto 9.9 % (2.6-8.5); Neutrophils Percent Auto 56.7 % (45.5-73.1); Platelet Count Result 213 k/mm3 (150-375); Red Blood Count 4.09 M/mm3 (4.2-5.4); Red Cell Distribution Width 12.4 % (11.5-14.5); White Blood Count 5.3 K/mm3 (4.5-10.0)
[2023-12-20 19:35] LABS: Folic Acid 10.2 ng/mL (2.76->20)
[2024-01-02 16:18] LABS: Intrinsic Factor Blocking Ab NEGATIVE
== END 2023-12-20 17:01 | disposition home or self-care (01) ==
LOC: ANHLAB 17:01
PROVIDERS: PCP Internal Medicine; Visit Provider Internal Medicine
DX: E53.8 Deficiency of other specified B group vitamins (principal); D70.9 Neutropenia, unspecified; R53.83 Other fatigue
CPT/HCPCS: 36415; 82607; 82746; 85025; 86340

== ENCOUNTER 2024-04-26 08:59 | Outpatient (CLI) | payer BC, SELFPAY ==
[2024-04-26 09:23] LABS: Basophils Percent Auto 1.1 % (0.2-1.2); Eosinophils Absolute Auto 0.1 K/mm3 (0-0.3); Eosinophils Percent Auto 3.6 % (0-4.4); Hematocrit 40.6 % (37.0-47.0); Hemoglobin 13.3 g/dL (12.0-15.0); Immature Granulocyte Absolute 0.01 K/mm3 (0.00-0.031); Immature Granulocyte Percent A 0.3 % (0-0.5); Lymphocytes Absolute Auto 1.22 K/mm3 (0.9-3.2); Mean Corpuscular HGB Conc 32.8 g/dl (32-36); Mean Corpuscular Hemoglobin 30.6 pg (26-34); Mean Corpuscular Volume 93.5 fl (80-100); Mean Platelet Volume 10.2 fl (7.4-10.4); Monocytes Absolute Auto 0.4 K/mm3 (0.1-0.6); Neutrophils Absolute Auto 1.8 K/mm3 (1.3-6.7); Platelet Count Result 210 k/mm3 (150-375); Red Blood Count 4.34 M/mm3 (4.2-5.4); Red Cell Distribution Width 12.1 % (11.5-14.5); White Blood Count 3.6 K/mm3 (4.5-10.0)
[2024-04-26 09:35] LABS: Alanine Aminotransferase 17 U/L (6-35); Albumin Level 4.5 g/dL (3.5-5.1); Alkaline Phosphatase 42 U/L (38-126); Anion Gap 4 mmol/L (4-12); Aspartate Amino Transferase 25 U/L (14-36); Bilirubin,Total 0.9 mg/dL (0.2-1.3); Blood Urea Nitrogen 20 mg/dL (7-17); Calcium 9.3 mg/dL (8.4-10.2); Carbon Dioxide 31 mmol/L (22-30); Chloride 104 mmol/L (98-107); Cholesterol 144 mg/dL (0-200); Estimated Glomerular Filt Rate > 60; Glucose 92 mg/dL (65-110); HDL Direct 64 mg/dL; Potassium 3.9 mmol/L (3.4-5.0); Sodium 139 mmol/L (137-145); Triglycerides 52 mg/dL (<150)
[2024-04-26 09:38] LABS: Add Urine Microscopic? YES; Appearance Urine Clear (Clear); Bilirubin Urine Negative (Negative); Blood Urine Negative (Negative); Color Urine Yellow (Yellow); Glucose Urine UA Negative (Negative); Ketones Urine Negative (Negative); Leukocyte Esterase Ur Trace LEU/UL (Negative); Nitrate Urine Negative (Negative); Protein Urine Negative (Negative); Specific Grav Ur 1.014 (1.001-1.035); Urobilinogen Urine 0.2 mg/dL (<2.0); pH Urine 7.5 (5.0-9.0)
[2024-04-26 09:45] LABS: LDL Cholesterol Direct 54 mg/dL
[2024-04-26 10:11] LABS: Free T4 Free Thyroxine 1.12 ng/dL (0.78-2.19)
[2024-04-26 10:43] LABS: Folic Acid 7.7 ng/mL (2.76->20)
[2024-04-30 18:47] LABS: Vitamin B6 26.9 ng/mL (2.1-21.7)
[2024-05-02 11:28] LABS: Vitamin B1 11 nmol/L (8-30)
[2024-05-04 07:23] LABS: Vitamin B2 <5.0 nmol/L (6.2-39.0)
== END 2024-04-26 09:00 | disposition home or self-care (01) ==
LOC: ANHLAB 09:00
PROVIDERS: PCP Internal Medicine; Visit Provider Internal Medicine
DX: E03.9 Hypothyroidism, unspecified (principal); E53.8 Deficiency of other specified B group vitamins; E53.9 Vitamin B deficiency, unspecified; D70.9 Neutropenia, unspecified; Z79.899 Other long term (current) drug therapy; Z13.220 Encounter for screening for lipoid disorders
CPT/HCPCS: 36415; 80053; 80061; 81001; 82607; 82746; 84207; 84252; 84425; 84439; 84443; 85025

== ENCOUNTER 2024-08-02 07:42 | Outpatient (CLI) | payer BC, SELFPAY ==
--- OUTSIDE RECORDS SUMMARY | 2024-08-02 07:47 | XMS_ITS | Encounter Summary ---
Author Organization [facility] Address [address] [place] [id number] Care Team Providers Care Yard Hostler Name Role Phone Amairani Ferrer NP Primary Care Provider [phone] Encounter Details Date Type Department Care Team (Late st Contact Info) Description 06/05/2020 Prep for Procedure [facility] [place], [place] [id number] Braden Ching MD [address] [phone] Social History Tobacco Use Types Packs/Day Years Used Date Smoking Tobacco: Former Cigarettes 1 4 1 993 - 1996 Smokeless Tobacco: Never Alcohol Use Standard Drinks/Week Comments Yes 0 (1 standard drink = 0.6 oz pur e alcohol) 2 drinks/week AUDIT-C Answer Date Recorded Q1: How often do you have a drink containing alc ohol? 2-4 times a month 05/26/2020 Q2: How many drinks containi ng alcohol do you have on a typical day when you are drinking? 1 or 2 05/26/2020 Frequency of Binge Drinking Not on file 05/15 PHQ-2 Answer Date Recorded PHQ-2 Score - If the patient scores above 3, please move on to questions 3-9 0 01/28/2020 Comments No Sex and Gender Information Value Date Recorded Sex Assigned at Not on file Legal Sex Female 7:09 PM CDT Gender Identity Not on file Sexual Orientation Not on file COVID-19 Exposure Response Date Recorded In the last month, have you been in contact with someone who was confirmed or suspected to have Coronavirus / COVID-19? No / Unsure 05/28/2020 2:02 PM DIRECTOR ELECTRICAL ENGINEERING documented as of this encounter Plan of Treatment Not on file documented as of this encounter Visit Diagnoses Diagnosis Family history of colon cancer- Primary Family history of malignant neoplasm of gastrointestinal tract documented in this encounter Additional Health Concerns Infection Onset Date Last Indicated Resolved Time COVID-19 Rule Out 06/15/2020 06/15/2020 06/16/2020 3:01 PM DIRECTOR ELECTRICAL ENGINEERING Assessment Noted Time PHQ-9 Depression Total Score: 0 01/28/20 8:38 AM CDT documented as of this encounter Care Teams Yard Hostler Relationship Specialty Start Date End Date Amairani Ferrer NP [address] [place] [id number] PCP - General NURSE PRACTITIONER 01/27/20 documented as of this encounter
--- OUTSIDE RECORDS SUMMARY | 2024-08-02 07:47 | XMS_ITS | Continuity of Care Document ---
Author Organization [facility] Address [address] [place] [address] Phone Care Team Providers Care Thermodynamic Physicist Name Role Phone Gerardo Betancourt MD Unavailable [...] Copied on Encounter OFFICE/OUTPAT IENT VISIT NEW [facility], [address], [place], [address], [place] tel:[phone] [facility] Pain in right kneeInternal derangement of right knee 3 Serafin Carrillo. [address], [place], [place], [id number] , [place]. tel: [phone] OFFICE/OUTPAT IENT VISIT EST [facility], [address] [place] [address] [address], [place], [address], [place] tel:[phone] [facility] Other internal derangements of right knee 3[address] Felecia Emmanuel. [address] [place] [address], [id number] . tel: [phone] OFFICE/OUTPAT IENT VISIT [facility], [address], [place], [address], [place] tel:[phone] [facility] Other internal derangements of right knee 6 Felecia Emmanuel. [address] [place], [place], [id number] . tel: [phone] Family History Family Member Type Diagnosis Age At Onset Brother Problem Sarcoma Mother Problem Thyroid disorder Father Problem Cardiovascular disease Mother Problem (finding) Alive and well Payers Payer name Insurance type Covered alliance party ID Authortoneya helena(s) Blue Access PPO [id number] [id number] Social History Type Description Quantity Date Captured [...]
--- OUTSIDE RECORDS SUMMARY | 2024-08-02 07:47 | XMS_ITS | Encounter Summary ---
Author Organization [facility] Address [address] [place] [id number] Care Team Providers Care Tape Controlled Machine Stitcher Name Role Phone Amairani Ferrer NP Primary Care Provider [phone] Encounter Details Date Type Department Care Team (Late st Contact Info) Description 06/15/2020 Prep for Procedure [facility] [place], [place] [id number] Braden Ching MD [address] [id number] Social History Tobacco Use Types Packs/Day Years [...] have Coronavirus / COVID-19? No / Unsure 06/18/2020 8:52 AM NUISANCE WILDLIFE TRAPPER documented as of this encounter Plan of Treatment Not on file documented as of this encounter Results * PRE-SURGICAL/PRE-PROCEDURE CORONAVIRUS (COVID 19) (06/15/2020 9:00 AM NUISANCE WILDLIFE TRAPPER) CORONAVIRUS SARS COV 2 PCR (RESP) NOT DETECTED NOT DETECTED 06/16/2020 3:01 PM NUISANCE WILDLIFE TRAPPER [employer] [facility] Comment: A Not Detected (negative) test result for this test means that SARS- CoV-2 RNA was not present in the specimen above the limit of detection. A negative result does not rule out the possibility of COVID-19 and should not be used as the sole basis for treatment or patient management decisions. If COVID-19 is still suspected, based on exposure history together with other clinical findings, re-testing should be considered in consultation with public health authorities. Laboratory test results should always be considered in the context of clinical observations and epidemiological data in making a final diagnosis and patient management decisions. Please review the Fact Sheets and FDA authorized labeling available for health care providers and patients using the following websites: https://www.[employer]iddler.com/home/Covid-19/HCP/[facility]/fact- sheet.html https://www.[employer]iddler.As Seen on TV/home/Covid-19/Patients/ Quest[employer]/fact-sheet.html This test has been authorized by the FDA under an Emergency Use Authorization (EUA) for use by authorized laboratories. Due to the current public health emergency, [facility] is receiving a high volume of samples from a wide variety of swabs and media for COVID-19 testing. In order to serve patients during this public health crisis, samples from appropriate clinical sources are being tested. Negative test results derived from specimens received in non-commercially manufactured viral collection and transport media, or in media and sample collection kits not yet authorized by FDA for COVID-19 testing should be cautiously evaluated and the patient potentially subjected to extra precautions such as additional clinical monitoring, including collection of an additional specimen. Methodology: Nucleic Acid Amplification Test (NAAT) includes RT-PCR or TMA Additional information about COVID-19 can be found at the [employer] website: www.As Seen on TV.com/Covid19. Test performed at [employer] [facility] [address] [place] [address] Director: RAMAKRISHNA PASTRANA DO,MPH FIRST TEST NO 06/15/2020 10:15 AM NUISANCE WILDLIFE TRAPPER [facility] EMPLOYED IN HEALTHCARE YES 06/15/2020 10:15 AM NUISANCE WILDLIFE TRAPPER [facility] SYMPTOMATIC DEFINED BY CDC NO 06/15/2020 10:15 AM NUISANCE WILDLIFE TRAPPER [facility] DATE OF SYMPTOM ONSET NO 06/15/2020 10:20 AM [facility] HOSPITALIZATION STATUS NO 06/15/2020 10:15 AM [facility] PATIENT IN ICU NO 06/15/2020 10:15 AM [facility] RESIDENT OF [facility] NO 06/15/2020 10:15 AM NUISANCE WILDLIFE TRAPPER [facility] NOT 06/15/2020 10:15 AM [facility] PATIENT'S RACE WHITE OR 06/15/2020 10:15 AM [facility] ETHNICITY NONHISPANIC 06/15/2020 10:15 AM [facility] SOURCE (QST) NASOPHARYNGEAL SWAB 06/15/2020 10:15 AM [facility] NASOPHARYNGEAL SWAB / Unknown 06/15/2020 9:00 AM NUISANCE WILDLIFE TRAPPER us Braden Ching MD MICROBIOLOGY - GENERAL ORDERABLE S Final Result [facility] [address] [place] [address], [place] [phone] [facility] [address] [place] [address], [place] documented in this encounter Visit Diagnoses Diagnosis Colon cancer screening- Primary Special screening for malignant neoplasms, colon documented in this encounter Additional Health Concerns Infection Onset Date Last Indicated Resolved Time COVID-19 Rule Out 06/15/2020 06/15/2020 06/16/2020 3:01 PM NUISANCE WILDLIFE TRAPPER Assessment Noted Time PHQ-9 Depression Total Score: 0 01/28/20 8:38 AM CDT documented as of this encounter Care Teams Tape Controlled Machine Stitcher Relationship Specialty Start Date End Date Amairani Ferrer NP [address] [place] [address] PCP - General NURSE PRACTITIONER 01/27/20 documented as of this encounter"
--- OUTSIDE RECORDS SUMMARY | 2024-08-02 07:48 | XMS_ITS | Encounter Summary ---
Author Organization [facility] Address [address] [place] [address] Care Team Providers Care Bridge Tender Name Role Phone Amairani Ferrer NP Primary Care Provider [phone] Encounter Details Date Type Department Care Team (Late st Contact Info) Description 12/16/2021 [employer] Message Enc [facility] Multispecialty Care - [address] [place] [address] [employer], [facility] Provider Lab Results Social History Tobacco Use Types Packs/Day Years Used Date Smoking Tobacco: Former Cigarettes 1 10 1 989 - 1998 Smokeless Tobacco: Never Comments:The provider can pr ovide you with more information about quitting. Alcohol Use Standard Drinks/Week Comments Yes 6.7 (1 standard drink = 0.6 oz p ure alcohol) 2 drinks/week AUDIT-C Answer Date Recorded [...] please move on to questions 3-9 0 12/15/2021 Comments No Sex and Gender Information Value Date Recorded Sex Assigned at Not on file Legal Sex Female 7:09 PM CDT Gender Identity Not on file Sexual Orientation Not on file COVID-19 Exposure Response Date Recorded In the last 10 days, have yo u been in contact with someone who was confirmed or suspected to have Coronavirus/COVID-19? No / Unsure 12/15/2021 11:06 AM CDT documented as of this encounter Plan of Treatment Not on file documented as of this encounter Visit Diagnoses Not on filedocumented in this encounter Additional Health Concerns Assessment Noted Time PHQ-9 Depression Total Score: 0 01/28/20 20 8:38 AM CDT documented as of this encounter Care Teams Bridge Tender Relationship Specialty Start Date End Date Amairani Ferrer NP [address] [place] [address] PCP - General NURSE PRACTITIONER 01/27/20 documented as of this encounter
--- OUTSIDE RECORDS SUMMARY | 2024-08-02 07:48 | XMS_ITS | Encounter Summary ---
Author Organization [facility] Address [address] [place] [address] Care Team Providers Care Electronic Musical Instrument Repairer Name Role Phone Amairani Ferrer NP Primary Care Provider [phone] Encounter Details Date Type Department Care Team (Late st Contact Info) Description 12/24/2021 [employer] Message Enc [facility] Family Medicine - [place] [address] [phone] Amairani Ferrer, KITTY [address] [phone] follow up MRI breast Social History Tobacco Use Types Packs/Day Years [...] documented as of this encounter Care Teams Electronic Musical Instrument Repairer Relationship Specialty Start Date End Date Amairani Ferrer NP [address] [place] [address] PCP - General NURSE PRACTITIONER 01/27/20 documented as of this encounter
--- OUTSIDE RECORDS SUMMARY | 2024-08-02 07:48 | XMS_ITS | Encounter Summary ---
Author Organization [facility] Address [address] [place] [address] Care Team Providers Care Cloth Spreader Screen Printing Name Role Phone Amairani Ferrer NP Primary Care Provider [phone] Encounter Details Date Type Department Care Team (Late st Contact Info) Description 01/28/2022 [employer] Message Enc [facility] Family Medicine - [place] [address] [facility] [address] [place] [address] [facility] Provider Referral Social History Tobacco Use Types Packs/Day Years [...] on file Sexual Orientation Not on file documented as of this encounter Plan of Treatment Not on file documented as of this encounter Visit Diagnoses Not on filedocumented in this encounter Additional Health Concerns Assessment Noted Time PHQ-9 Depression Total Score: 0 01/28/20 20 8:38 AM CDT documented as of this encounter Care Teams Cloth Spreader Screen Printing Relationship Specialty Start Date End Date Amairani Ferrer NP [address] [place] [address] PCP - General NURSE PRACTITIONER 01/27/20 documented as of this encounter
--- OUTSIDE RECORDS SUMMARY | 2024-08-02 07:48 | XMS_ITS | Clinical Summary ---
Author Organization [facility] Address [address] [place] [address] Care Team Providers Care Lay Up Operator Name Role Phone Rosie Edmond INSTRUMENT SETTER Unavailable [phone] Fortino Waters MD Primary Care Provider [phone] Allergies No known active allergies Medications SYNTHROID 75 mcg tablet 1 9 Active levonorgestreL (Mirena) IUD Mirena 20 mcg/24 hours (5 yrs) 52 mg intrauterine device Take by intrauterine route. Active oxyCODONE-aceta minophen (PERCOCET) 5-325 mg per tabletIndicatio ns:Pain Take 1-2 tablets every 4-6 hours as needed for pain 36 tablet 3 Active Additional Information Patient not taking.Reported on 09/12/2022 Active Problems Problem Noted Date Diagnosed Date S/P ACL reconstruction 07/08/2022 Rupture of anterior cruciate ligament of right k nee 06/03/2022 Sprain of medial collateral ligament of right kn ee 06/03/2022 Current tear of lateral cartilage or meniscus of knee 06/03/2022 Right knee pain 06/03/2022 Breast mass 09/07/2018 Encounters Date Type Department Care Team Description 05/29/2024 Documentation [facility] Surgery [facility] Floor [address] [place] [address] Clarita Marx from Last 3 Months Surgical History Surgery Date Site/Laterality Comments BREAST RECONSTRUCTION SECTION / ANTERIOR CRUCIATE LIGAMENT REPAIR 07/07/2022 Right Medical History Medical History Date Comments Thyroid disease Family History Medical History Relation Name Comments Other Brother sarcoma Lung cancer Father's Sister 1 Lung cancer Father's Sister 2 Breast cancer Mother's Sister Colon cancer Paternal Grandmother Relation Name Status Comments Brother Father's Sister 1 Father's Sister 2 Mother's Sister Paternal Grandmother Social History Tobacco Use Types Packs/Day Years Used Date Smoking Tobacco: Former Passive Smoke Exposure: Past Smokeless Tobacco: Never Tobacco Cessation:Counseling Given: Not Answered Personal Safety Answer Date Recorded Getting School Help Needed Not on file 06/09 Comments No Sex and Gender Information Value Date Recorded Sex Assigned at Not on file Legal Sex Female 10:22 AM MAJOR GENERAL Gender Identity Not on file Sexual Orientation Not on file Obstetrics History Last Filed Vital Signs Vital Sign Reading Time Taken Comments Blood Pressure - - Pulse - - Temperature - - Respiratory Rate - - Oxygen Saturation - - Inhaled Oxygen Concentration - - Weight 68 kg (150 lb) 07/20/2023 11:07 AM MAJOR GENERAL Height 167.6 cm (5' 6 ) 07/20/2023 11:07 AM MAJOR GENERAL Body Mass Index 24.21 07/20/2023 11:07 AM MAJOR GENERAL Plan of Treatment Health Maintenance Due Date Last Done Comments Cervical Cancer Screening 1973 Colon Cancer Screening-Colonoscopy 1973 Depression Screening 1973 Hepatitis C Screening 1973 Hepatitis B Screening 1991 Regular Well Visit/Exam 18-64 1991 Zoster Vaccine (1 of 2) 2023 Influenza Vaccine (#1) 2024 Breast Cancer Screening-Mammogram 07/19/2024 07/20/2023, 07/06/2022, 06/28/2021, Additional history exists DTaP/Tdap/Td Vaccine (2 - Td or Tdap) 01/27/2030 01/28/2020 Pneumococcal vaccine <65 Aged Out No longer eligible based on patient's age to complete this topic Procedures Procedure Name Priority Date/Time Associated Diagnosis Comments DIAGNOSTIC MAMMOGRAM BILATERAL W KENAN W IMPLANTS Schedule Routine, Read Routine (OP Routine) 07/20/2023 1:12 PM MAJOR GENERAL Mass of left breast, unspecified quadrant Breast pain, left from Last 3 Months or Most Recently Relevant to Health Maintenance Results * Diagnostic Mammogram Bilateral w Kenan w Implants (07/20/2023 1:12 PM MAJOR GENERAL) Anatomical Region Laterality Modality Breast Bilateral Mammography 07/20/2023 1:28 PM MAJOR GENERAL Impressions 07/20/2023 2:18 PM MAJOR GENERAL 1. No suspicious mammographic or sonographic abnormality corresponding to patient's area of pain at 8:30, 2 cm the nipple in the LEFT breast. 2. Overall stable appearance of likely hamartoma within the LEFT breast at 1:30, 2 cm the nipple. This is benign. 3. Multiple silicone laden lymph nodes within the LEFT axilla one of which correlates to the patient's area of palpable concern. This is benign and consistent with patient's reported history of prior implant rupture and replacement. OVERALL FINAL ASSESSMENT: BI-RADS Category 2: Benign. RECOMMENDATION: 1. Annual screening mammography is recommended. 2. Clinical follow-up for pain is recommended. Dr. Ferris discussed the above findings and recommendations with the patient, who expressed her understanding of the management plan. Dictated by: Adiel Ferris MD The radiology attending physician has personally reviewed this study, and had reviewed and/or edited this written report and agrees with it. Electronically signed by: Sarah Carranza M.D. Narrative 07/20/2023 2:18 PM MAJOR GENERAL EXAMINATION: BILATERAL DIGITAL DIAGNOSTIC MAMMOGRAM INCLUDING CAD AND BILATERAL DIGITAL BREAST TOMOSYNTHESIS; LEFT BREAST SONOGRAM HISTORY: 48-year-old woman with area of focal pain in the lower, inner LEFT breast for approximately 1 month as well as area of palpable concern for multiple years in the upper, outer LEFT breast, and the area of palpable concern in the LEFT axilla/axillary tail. COMPARISON: Multiple priors dating back to 2018, most recent bilateral diagnostic mammogram 07/06/2022 TECHNIQUE: Full field digital mammographic views of BOTH breasts were performed, including computer aided detection (CAD) and BILATERAL digital breast tomosynthesis (DBT). Directed ultrasound evaluation of the LEFT breast was performed. BREAST PARENCHYMAL COMPOSITION: The breasts are extremely dense, which lowers the sensitivity of mammography. MAMMOGRAM FINDINGS: No suspicious mass, distortion, or calcification within the RIGHT breast. A square shaped skin marker is placed overlying the lower inner LEFT breast at the patient's area of focal pain. No suspicious mammographic abnormality underlying this marker. A triangle shaped skin marker is placed overlying the upper, outer LEFT breast. Subjacent to this marker is a similar appearing heterogeneous 3.7 cm mass. An additional triangle shaped skin marker is placed overlying the LEFT axilla with underlying prominent LEFT axillary nodes. Bilateral silicone implants are in place. SONOGRAM FINDINGS: Targeted ultrasound at 8:30, 2 cm the nipple in the patient's area of pain demonstrates no suspicious sonographic abnormality. Targeted ultrasound at 1:30, 2 cm the nipple in the patient's area of palpable concern demonstrates a 3.7 x 2.1 x 1.3 cm heterogeneous, fat-containing mass consistent with a hamartoma which is not significantly changed dating back to 2018. Targeted ultrasound within the LEFT axilla demonstrates multiple mildly prominent silicone laden lymph nodes. Procedure Note Sarah Carranza MD - 07/20/2023 EXAMINATION: BILATERAL DIGITAL DIAGNOSTIC MAMMOGRAM INCLUDING CAD AND BILATERAL DIGITAL BREAST TOMOSYNTHESIS; LEFT BREAST SONOGRAM HISTORY: 48-year-old woman with area of focal pain in the lower, inner LEFT breast for approximately 1 month as well as area of palpable concern for multiple years in the upper, outer LEFT breast, and the area of palpable concern in the LEFT axilla/axillary tail. COMPARISON: Multiple priors dating back to 2018, most recent bilateral diagnostic mammogram 07/06/2022 TECHNIQUE: Full field digital mammographic views of BOTH breasts were performed, including computer aided detection (CAD) and BILATERAL digital breast tomosynthesis (DBT). Directed ultrasound evaluation of the LEFT breast was performed. BREAST PARENCHYMAL COMPOSITION: The breasts are extremely dense, which lowers the sensitivity of mammography. MAMMOGRAM FINDINGS: No suspicious mass, distortion, or calcification within the RIGHT breast. A square shaped skin marker is placed overlying the lower inner LEFT breast at the patient's area of focal pain. No suspicious mammographic abnormality underlying this marker. A triangle shaped skin marker is placed overlying the upper, outer LEFT breast. Subjacent to this marker is a similar appearing heterogeneous 3.7 cm mass. An additional triangle shaped skin marker is placed overlying the LEFT axilla with underlying prominent LEFT axillary nodes. Bilateral silicone implants are in place. SONOGRAM FINDINGS: Targeted ultrasound at 8:30, 2 cm the nipple in the patient's area of pain demonstrates no suspicious sonographic abnormality. Targeted ultrasound at 1:30, 2 cm the nipple in the patient's area of palpable concern demonstrates a 3.7 x 2.1 x 1.3 cm heterogeneous, fat-containing mass consistent with a hamartoma which is not significantly changed dating back to 2018. Targeted ultrasound within the LEFT axilla demonstrates multiple mildly prominent silicone laden lymph nodes. IMPRESSION: 1. No suspicious mammographic or sonographic abnormality corresponding to patient's area of pain at 8:30, 2 cm the nipple in the LEFT breast. 2. Overall stable appearance of likely hamartoma within the LEFT breast at 1:30, 2 cm the nipple. This is benign. 3. Multiple silicone laden lymph nodes within the LEFT axilla one of which correlates to the patient's area of palpable concern. This is benign and consistent with patient's reported history of prior implant rupture and replacement. OVERALL FINAL ASSESSMENT: BI-RADS Category 2: Benign. RECOMMENDATION: 1. Annual screening mammography is recommended. 2. Clinical follow-up for pain is recommended. Dr. Ferris discussed the above findings and recommendations with the patient, who expressed her understanding of the management plan. Dictated by: Adiel Ferris MD The radiology attending physician has personally reviewed this study, and had reviewed and/or edited this written report and agrees with it. Electronically signed by: Sarah Carranza M.D. July Vargas NP IMG MAMMO PROCEDURES Final Result from Last 3 Months or Most Recently Relevant to Health Maintenance [place] / [place]ayer (Ef fective 2017-Present) Name:Nikki Magaña Relation to Subscriber:Spouse Name:Denita Magaña Date of :1971 (Home) Address: [address] [place] [address] Payer ID:[id number] (NAIC) Type:HEALTHCARE/EXCHANGE Address: [address] Care Teams Lay Up Operator Relationship Specialty Start Date End Date Fortino Waters MD [address] [place] [address] [facility]IC[facility] [place], [place] [id number] PCP - General Internal Medicine 07/20/23 Rosie Edmond NP Nurse Practitioner Nurse Practitioner 02/24/20
--- OUTSIDE RECORDS SUMMARY | 2024-08-02 07:48 | XMS_ITS | Clinical Summary ---
Author Organization [facility] Address [address] [place] [address] Care Team Providers Care Leather Worker Name Role Phone Amairani Ferrer NP Primary Care Provider [phone] Allergies No known active allergies Medications levonorgestrel (MIRENA, 52 MG,) 20 MCG/24HR IUD Mirena 20 mcg/24 hours (6 yrs) 52 mg intrauterine device Take by intrauterine route. Active levothyroxine (SYNTHROID) 50 MCG tabletIndications: Acquired hypothyroidism Take 1 tablet (50 mcg total) by mouth every morning. 30 tablet 07/04/19 23 Active Active Problems Problem Noted Date Diagnosed Date Presence of silicone breast implant 12/15/2021 Vitamin D deficiency 08/18/2020 Family history of colon cancer 05/27/2020 Overview (05/27/2020): Added automatically from request for surgery [id number] Constipation 05/27/2020 Overview (05/27/2020): Added automatically from request for surgery [id number] Left breast mass 01/28/2020 Low back pain without sciati ca, unspecified back pain laterality, unspecified chronicity 01/28/2020 Encounter for insertion of c opper intrauterine contraceptive device (IUD) 07/26/2013 Hypothyroidism 07/19/2013 Resolved Problems Problem Noted Date Diagnosed Date Resolved Date Breast mass 09/07/2018 01/28/2020 Immunizations Name Administration Dates Next Due Tdap (Adacel) 01/28/2020 Family History Medical History Relation Comments Cancer Brother sarcoma Early Brother cancer COPD Father copd Heart Attack Father Heart Disease Father heart attack age 54 Stent Cardiac Father Vision loss Father glaucoma Cancer Maternal Aunt breast Arthritis Maternal Grandfather Heart Disease Maternal Grandfather pacemaker, CHF Heart Disease Maternal Uncle aortic aneurysm Alzheimers Paternal Grandmother Asthma Paternal Grandmother emphysema Cancer Paternal Grandmother colon Colon Cancer Paternal Grandmother Miscarriages / Stillbirths Sister still Relation Status Comments Brother Father Maternal Aunt Maternal Grandfather Maternal Uncle Paternal Grandmother Sister Social History Tobacco Use Types Packs/Day Years Used Date Smoking Tobacco: Former Cigarettes 1 10 9 1998 Smokeless Tobacco: Never Tobacco Cessation:Counseling Given: No Comments:The provider can provide you with more information about quitting. Alcohol [...] on file Sexual Orientation Not on file Last Filed Vital Signs Vital Sign Reading Time Taken Comments Blood Pressure 106/62 12/15/2021 11:08 AM CDT Pulse 58 12/15/2021 11:08 AM CDT Temperature 36.8 C (98.3 F) 12/15/2021 11:08 AM CDT Respiratory Rate 14 12/15/2021 11:08 AM CDT Oxygen Saturation 100% 12/15/2021 11:08 AM CDT Inhaled Oxygen Concentration - - Weight 69.9 kg (154 lb) 12/15/2021 11:08 AM CDT Height 167.6 cm (5' 6 ) 12/15/2021 11:08 AM CDT Body Mass Index 24.86 12/15/2021 11:08 AM CDT Plan of Treatment Health Maintenance Due Date Last Done Comments PHQ-2 (Physician [place]) 1985 Hepatitis B Vaccines (1 of 3 - 19+ 3-dose series) 01/03/1992 Annual Physical 04/02/2022 04/02/2021 Zoster Vaccines (1 of 2) 2023 COVID-19 Vaccine (1 - 2023-2 5 season) 2024 Influenza Adult (#1) 2024 PHQ-2 (Physician [place]) 05/15/2024 Mammogram Screening 07/19/2025 07/20/2023, 06/28/2021 Cervical Cancer Screening Pa p with HPV Testing (Age 30 to 64) Every 5 Years 04/23/2026 04/23/2021 Cervical Cancer Screening Pa p Smear (Age 30 to 64) Every 3 Years 06/02/2026 06/02/2023, 04/23/2021 Cervical Cancer Screening wi th HPV 06/02/2026 DTaP, Tdap and Td Vaccines ( 2 - Td or Tdap) 01/27/2030 01/28/2020 Colorectal Cancer Screening Colonoscopy (10 Years) 06/18/2030 06/18/2020 Hepatitis C Completed 07/29/2022 Meningococcal B Vaccine Aged Out No l onger eligible based on patient's age to complete this topic Meningococcal Vaccine Aged Out No mae lexie eligible based on patient's age to complete this topic Pneumococcal Vaccine: Pediatrics (0 to 5 Years) and At-Risk Patients (6 to 64 Years) Aged Out No longer eligible b ased on patient's age to complete this topic RSV Immunizations Under 20 Months Aged Out No longer eligible b ased on patient's age to complete this topic Procedures Procedure Name Priority Date/Time Associated Diagnosis Comments MAMMOGRAM GENERIC (SCAN ORDER) Routine 07/20/2023 HEPATITIS C ANTIBODY W/RFX TO HCV RNA Routine 07/29/2022 9:52 AM CDT Need for hepatitis C screening test OUTSIDE CYTOPATH CERV/VAG INTERPRET (PAP) 04/23/2021 from Last 3 Months or Most Recently Relevant to Health Maintenance Results * MAMMOGRAM (07/20/2023) Anatomical Region Laterality Modality Other us Doc Med Group Scanned SCANNING Final Resu lt * HEPATITIS C ANTIBODY W/RFX TO HCV RNA ([facility] ONLY) (07/29/2022 9:52 AM CDT) HEPATITIS C AB NON-REACT KARLY NON-REACT KARLY [facility] SIGNAL TO CUTOFF 0.21 <1.00 [facility] Comment: HCV antibody was non-reactive. There is no laboratory evidence of HCV infection. In most cases, no further action is required. However, if recent HCV exposure is suspected, a test for HCV RNA (test code 69368) is suggested. For additional information please refer to http://education.[facility]/faq/VJE60k7 (This link is being provided for informational/ educational purposes only.) 07/29/2022 9:52 AM CDT 07/29/2022 9:54 AM CDT Narrative [facility] [place] - 07/30/2022 11:06 AM CDT FASTING:YES FASTING: YES Resulting Agency Comment Performing Organization Information: Site ID: [place] Name: [facility] Address: [id number] [place] [id number] Director: Paloma Montalvo MD us Amairani Ferrer [facility] Final Res ult [facility] [place] [facility] [address] [place] [address], * PAP SMEAR WITH HPV (04/23/2021) 04/23/2021 Narrative 04/23/2021 Ordered by an unspecified provider. us Documents Scanned SCANNING Final Result from Last 3 Months or Most Recently Relevant to Health Maintenance Insurance [facility] Care Teams Leather Worker Relationship Specialty Start Date End Date Amairani Ferrer NP [address] [place] [id number] PCP - General NURSE PRACTITIONER 01/27/20
--- OUTSIDE RECORDS SUMMARY | 2024-08-02 07:48 | XMS_ITS | Referral Summary ---
Author Organization [facility] Address [address] [place] [address] Care Team Providers Care Duty Officer Name Role Phone Rosie Edmond VINYL TOP INSTALLER Unavailable [phone] Fortino Waters MD Primary Care Provider [phone] Encounters Date Type Department Care Team Description 05/29/2024 Documentation [facility] Surgery [address] [facility] Floor 8 [place] [address] Clarita Marx from Last 3 Months Allergies No known active allergies Medications SYNTHROID [...] Right knee pain 06/03/2022 Breast mass 09/07/2018 Social History Tobacco Use Types Packs/Day Years Used Date Smoking Tobacco: Former Passive Smoke Exposure: Past Smokeless Tobacco: Never Tobacco Cessation:Counseling Given: Not Answered Personal Safety Answer Date Recorded Getting School Help Needed Not on file 06/09 Comments No Sex and Gender Information Value Date Recorded Sex Assigned at Not on file Legal Sex Female 10:22 AM GAS ENGINE MECHANIC Gender Identity Not on file Sexual Orientation Not on file Last Filed Vital Signs Vital Sign Reading Time Taken Comments Blood Pressure - - Pulse - - Temperature - - Respiratory Rate - - Oxygen Saturation - - Inhaled Oxygen Concentration - - Weight 68 kg (150 lb) 07/20/2023 11:07 AM GAS ENGINE MECHANIC Height 167.6 cm (5' 6 ) 07/20/2023 11:07 AM GAS ENGINE MECHANIC Body Mass Index 24.21 07/20/2023 11:07 AM GAS ENGINE MECHANIC Plan of Treatment Not on file Procedures Procedure Name Priority Date/Time Associated Diagnosis Comments DIAGNOSTIC MAMMOGRAM BILATERAL W KENAN W IMPLANTS Schedule Routine, Read Routine (OP Routine) 07/20/2023 1:12 PM GAS ENGINE MECHANIC Mass of left breast, unspecified quadrant Breast pain, left from Last 3 Months or Most Recently Relevant to Health Maintenance Results * Diagnostic Mammogram Bilateral w Kenan w Implants (07/20/2023 1:12 PM GAS ENGINE MECHANIC) Anatomical Region Laterality Modality Breast Bilateral Mammography 07/20/2023 1:28 PM GAS ENGINE MECHANIC Impressions 07/20/2023 2:18 PM GAS ENGINE MECHANIC 1. No suspicious mammographic or sonographic abnormality [...] Sarah Carranza M.D. Narrative 07/20/2023 2:18 PM GAS ENGINE MECHANIC EXAMINATION: BILATERAL DIGITAL DIAGNOSTIC MAMMOGRAM INCLUDING CAD [...] Most Recently Relevant to Health Maintenance [place] Care Teams Duty Officer Relationship Specialty Start Date End Date Fortino Waters MD [address] [place] [address] PCP - General Internal Medicine 07/20/23 Rosie Edmond NP Nurse Practitioner Nurse Practitioner 02/24/20
[2024-08-02 08:38] LABS: CRP < 0.5 mg/dL (<1.0)
[2024-08-02 08:40] LABS: Erythrocyte Sedimentation Rate 11 mm/hr (0-20)
[2024-08-02 09:49] LABS: Free T3 3.34 pg/mL (2.71-6.16); Free T4 Free Thyroxine 1.12 ng/dL (0.78-2.19); Vitamin D 25 Hydroxy 34.7 ng/mL
[2024-08-06 03:28] LABS: SS-A <1.0 NEG AI (<1.0 NEG); SS-B <1.0 NEG AI (<1.0 NEG)
== END 2024-08-02 07:43 | disposition home or self-care (01) ==
LOC: ANHLAB 07:43
PROVIDERS: PCP Internal Medicine; Visit Provider Internal Medicine
DX: E03.9 Hypothyroidism, unspecified (principal); E55.9 Vitamin D deficiency, unspecified; R41.89 Other symptoms and signs involving cognitive functions and awareness; K59.00 Constipation, unspecified; L85.3 Xerosis cutis; Z79.899 Other long term (current) drug therapy
CPT/HCPCS: 36415; 82306; 84439; 84443; 84481; 85652; 86140; 86235

== ENCOUNTER 2024-08-14 10:21 | Outpatient (CLI) | payer BC, SELFPAY ==
--- NOTE | ~2024-08-14 | US_ITS ---
EXAMINATION:US venous doppler LE BI INDICATION:Leg pain and edema TECHNIQUE: Multiple grayscale, color flow and Doppler images of the right and left lower extremity de ep venous systems were obtained and reviewed. COMPARISON:Ultrasound dated 09/14/2022 FINDINGS: The common femoral, superficial femoral and popliteal veins demonstrate normal respiratory variation, augmentation and compressibility. Color flow is also seen within the posterior tibial, pe roneal, greater saphenous and profunda veins. IMPRESSION: 1: No lower extremity deep venous thrombosis. Reviewed, dictated and finalized at location A.
--- OUTSIDE RECORDS SUMMARY | 2024-08-14 11:42 | XMS_ITS | Encounter Summary ---
Author Organization [facility] Address [address] [place] [address] Care Team Providers Care Mechanical Maintenance Supervisor Name Role Phone Amairani Ferrer NP Primary Care Provider [phone] Encounter Details Date Type Department Care Team (Late st Contact Info) Description 12/16/2021 [employer] Message Enc [facility] Medical Group Multispecialty Care - [address] [place] [address] [employer], [facility] Provider Lab Results Social History Tobacco Use [...] documented as of this encounter Care Teams Mechanical Maintenance Supervisor Relationship Specialty Start Date End Date Amairani Ferrer NP [address] [place] [address] PCP - General NURSE PRACTITIONER 01/27/20 documented as of this encounter
--- OUTSIDE RECORDS SUMMARY | 2024-08-14 11:42 | XMS_ITS | Clinical Summary ---
Author Organization [facility] Address [address] [place] [address] Care Team Providers Care Speech Pathology Teacher Name Role Phone Amairani Ferrer NP Primary Care Provider [phone] Allergies No known active allergies Medications levonorgestrel [...] (05/27/2020): Added automatically from request for surgery [id number] Constipation 05/27/2020 Overview (05/27/2020): Added automatically from request for surgery [id number] Left breast mass 01/28/2020 Low back pain [...] Health Maintenance Due Date Last Done Comments Hepatitis B Vaccines (1 of 3 - 19+ 3-dose series) 01/03/1992 Annual Physical 04/02/2022 04/02/2021 Zoster Vaccines (1 of 2) 2023 COVID-19 Vaccine (1 - 2023-2 5 season) 2024 Influenza Adult (#1) 2024 PHQ-2 (Physician [place]) 05/15/2024 Mammogram Screening 07/19/2025 07/20/2023, 06/28/2021 Cervical [...] HEPATITIS C AB NON-REACT KARLY NON-REACT KARLY [facility] SIGNAL TO CUTOFF 0.21 <1.00 [facility] Comment: HCV antibody was non-reactive. There is no laboratory evidence of HCV infection. In most cases, no further action is required. However, if recent HCV exposure is suspected, a test for HCV RNA (test code 70047) is suggested. For additional information please refer to http://education.tibdit/faq/AUH24n6 (This link is being provided for informational/ educational purposes only.) 07/29/2022 9:52 AM CDT 07/29/2022 9:54 AM CDT Narrative [facility] [place] [facility] - 07/30/2022 11:06 AM CDT FASTING:YES FASTING: YES Resulting Agency Comment Performing Organization Information: Site ID: ID Name: [id number] Address: [address] [place] [id number] Director: Paloma Montalvo MD us Amairani Ferrer NP LABORATORY Final Res ult [facility] [place] [facility] [id number] [place] [address], * PAP SMEAR WITH HPV (04/23/2021) 04/23/2021 Narrative 04/23/2021 Ordered by an unspecified provider. us Documents Scanned SCANNING Final Result from Last 3 Months or Most Recently Relevant to Health Maintenance Insurance [address] [place], [place] [id number] [place] [address] Care Teams Speech Pathology Teacher Relationship Specialty Start Date End Date Amairani Ferrer NP [address] [place] [id number] PCP - General NURSE PRACTITIONER 01/27/20
--- OUTSIDE RECORDS SUMMARY | 2024-08-14 11:42 | XMS_ITS | Referral Summary ---
Author Organization [facility] Address [address] [place] [address] Care Team Providers Care Peace Officer Name Role Phone Rosie Edmond RAW JUICE WEIGHER Unavailable [phone] Fortino Waters MD Primary Care Provider [phone] Encounters Date Type Department Care Team Description 08/12/2024 Orders Only [facility] Surgery [address] [place] [address] Floor 5 [place] [address] Jemima Alatorre, KITTY Mass of left breast, unspecified quadrant (Primary Dx) 05/29/2024 Documentation [facility] Surgery [address] [place] [address] Floor 8 [place] [address] Clarita Marx from Last 3 [...] on file Legal Sex Female 10:22 AM OCEAN EXPORT AGENT Gender Identity Not on file Sexual Orientation Not on file Last Filed Vital Signs Vital Sign Reading Time Taken Comments Blood Pressure - - Pulse - - Temperature - - Respiratory Rate - - Oxygen Saturation - - Inhaled Oxygen Concentration - - Weight 68 kg (150 lb) 07/20/2023 11:07 AM OCEAN EXPORT AGENT Height 167.6 cm (5' 6 ) 07/20/2023 11:07 AM OCEAN EXPORT AGENT Body Mass Index 24.21 07/20/2023 11:07 AM OCEAN EXPORT AGENT Plan of Treatment Not on file Procedures Procedure Name Priority Date/Time Associated Diagnosis Comments DIAGNOSTIC MAMMOGRAM BILATERAL W KENAN W IMPLANTS Schedule Routine, Read Routine (OP Routine) 07/20/2023 1:12 PM OCEAN EXPORT AGENT Mass of left breast, unspecified quadrant Breast pain, left from Last 3 Months or Most Recently Relevant to Health Maintenance Results * Diagnostic Mammogram Bilateral w Kenan w Implants (07/20/2023 1:12 PM OCEAN EXPORT AGENT) Anatomical Region Laterality Modality Breast Bilateral Mammography 07/20/2023 1:28 PM OCEAN EXPORT AGENT Impressions 07/20/2023 2:18 PM OCEAN EXPORT AGENT 1. No suspicious mammographic or sonographic abnormality [...] Sarah Carranza M.D. Narrative 07/20/2023 2:18 PM OCEAN EXPORT AGENT EXAMINATION: BILATERAL DIGITAL DIAGNOSTIC MAMMOGRAM INCLUDING CAD [...] Electronically signed by: Sarah Carranza M.D. July De Leóntawana Vargas RAW JUICE WEIGHER IMG MAMMO PROCEDURES Final Result from Last 3 Months or Most Recently Relevant to Health Maintenance [place] Care Teams Peace Officer Relationship Specialty Start Date End Date Fortino Waters MD [address] [place] [address] PCP - General Internal Medicine 07/20/23 Rosie Edmond NP Nurse Practitioner Nurse Practitioner 02/24/20
--- OUTSIDE RECORDS SUMMARY | 2024-08-14 11:42 | XMS_ITS | Encounter Summary ---
Author Organization [facility] Address [address] [place] [address] Care Team Providers Care Outreach Consultant Name Role Phone Amairani Ferrer NP Primary Care Provider [phone] Encounter Details Date Type Department Care Team (Late st Contact Info) Description 06/15/2020 Prep for Procedure [facility] [place], [place] [id number] Braden Ching MD [address] [id number] Social History Tobacco Use Types Packs/Day Years [...] COVID-19? No / Unsure 06/18/2020 8:52 AM CRIMINAL JUSTICE PROGRAM DIRECTOR documented as of this encounter Plan of Treatment Not on file documented as of this encounter Results * PRE-SURGICAL/PRE-PROCEDURE CORONAVIRUS (COVID 19) (06/15/2020 9:00 AM CRIMINAL JUSTICE PROGRAM DIRECTOR) CORONAVIRUS SARS COV 2 PCR (RESP) NOT DETECTED NOT DETECTED 06/16/2020 3:01 PM CRIMINAL JUSTICE PROGRAM DIRECTOR [facility] Comment: A Not Detected (negative) test result [...] providers and patients using the following websites: https://www.Vule[employer].com/home/Covid-19/HCP/[facility]/fact- sheet.html https://www.Vule[employer]ú.Apropose/home/Covid-19/Patients/ Quest[facility]/fact-sheet.html This test has been authorized by the FDA under an Emergency Use Authorization (EUA) for use by authorized laboratories. Due to the current public health emergency, [facility] is receiving a high volume of samples [...] about COVID-19 can be found at the [facility] website: www.[employer].com/Covid19. Test performed at [facility] [address] [place] [address] Director: RAMAKRISHNA PASTRANA DO,MPH FIRST TEST NO 06/15/2020 10:15 AM CRIMINAL JUSTICE PROGRAM DIRECTOR [facility] EMPLOYED IN HEALTHCARE YES 06/15/2020 10:15 AM CRIMINAL JUSTICE PROGRAM DIRECTOR [facility] SYMPTOMATIC DEFINED BY CDC NO 06/15/2020 10:15 AM CRIMINAL JUSTICE PROGRAM DIRECTOR [facility] DATE OF SYMPTOM ONSET NO 06/15/2020 10:20 AM [facility] HOSPITALIZATION STATUS NO 06/15/2020 10:15 AM [facility] PATIENT IN ICU NO 06/15/2020 10:15 AM [facility] RESIDENT OF [facility] NO 06/15/2020 10:15 AM CRIMINAL JUSTICE PROGRAM DIRECTOR [facility] NOT 06/15/2020 10:15 AM [facility] PATIENT'S RACE WHITE OR 06/15/2020 10:15 AM [facility] ETHNICITY NONHISPANIC 06/15/2020 10:15 AM [facility] SOURCE (QST) NASOPHARYNGEAL SWAB 06/15/2020 10:15 AM [facility] NASOPHARYNGEAL SWAB / Unknown 06/15/2020 9:00 AM CRIMINAL JUSTICE PROGRAM DIRECTOR us Braden Ching MD MICROBIOLOGY - GENERAL ORDERABLE S Final Result [facility] [address] [place] [address], [place] [phone] [facility] [address] [place] [address], BB documented in this encounter Visit Diagnoses Diagnosis Colon cancer screening- Primary Special screening for malignant neoplasms, colon documented in this encounter Additional Health Concerns Infection Onset Date Last Indicated Resolved Time COVID-19 Rule Out 06/15/2020 06/15/2020 06/16/2020 3:01 PM CRIMINAL JUSTICE PROGRAM DIRECTOR Assessment Noted Time PHQ-9 Depression Total Score: 0 01/28/20 8:38 AM CDT documented as of this encounter Care Teams Outreach Consultant Relationship Specialty Start Date End Date Amairani Ferrer NP [address] [place] [address] PCP - General NURSE PRACTITIONER 01/27/20 documented as of this encounter
--- OUTSIDE RECORDS SUMMARY | 2024-08-14 11:42 | XMS_ITS | Encounter Summary ---
Author Organization [facility] Address [address] [place] [address] Care Team Providers Care Load Test Mechanic Name Role Phone Amairani Ferrer NP Primary Care Provider [phone] Encounter Details Date Type Department Care Team (Late st Contact Info) Description 12/24/2021 Crowdrally Message Enc [facility] Medical Group Family Medicine - [place] [address] [id number] Amairani Ferrer, KITTY [address] [phone] follow up MRI breast Social History Tobacco [...] documented as of this encounter Care Teams Load Test Mechanic Relationship Specialty Start Date End Date Amairani Ferrer NP [address] [place] [address] PCP - General NURSE PRACTITIONER 01/27/20 documented as of this encounter
--- OUTSIDE RECORDS SUMMARY | 2024-08-14 11:42 | XMS_ITS | Clinical Summary ---
Author Organization [facility] Address [address] [place] [address] Care Team Providers Care Mushroom Picker Name Role Phone Rosie Edmond MIXED LIVESTOCK FARM WORKER Unavailable [phone] Fortino Waters MD Primary Care Provider [phone] Allergies No known active allergies Medications SYNTHROID [...] Department Care Team Description 08/12/2024 Orders Only [facility] Surgery [address] [place] [address] Floor 5 [place] [address] Jemima Alatorre NP Mass of left breast, unspecified quadrant (Primary Dx) 05/29/2024 Documentation [facility] Surgery [address] [place] [address] Floor 8 [place] [address] Clarita Marx from Last 3 Months Surgical History Surgery Date Site/Laterality Comments BREAST RECONSTRUCTION SECTION ANTERIOR CRUCIATE LIGAMENT REPAIR 07/07/2022 Right Medical [...] on file Legal Sex Female 10:22 AM IRON GUARDRAIL INSTALLER Gender Identity Not on file Sexual Orientation Not on file Obstetrics History Last Filed Vital Signs Vital Sign Reading Time Taken Comments Blood Pressure - - Pulse - - Temperature - - Respiratory Rate - - Oxygen Saturation - - Inhaled Oxygen Concentration - - Weight 68 kg (150 lb) 07/20/2023 11:07 AM IRON GUARDRAIL INSTALLER Height 167.6 cm (5' 6 ) 07/20/2023 11:07 AM IRON GUARDRAIL INSTALLER Body Mass Index 24.21 07/20/2023 11:07 AM IRON GUARDRAIL INSTALLER Plan of Treatment Health Maintenance Due Date [...] Read Routine (OP Routine) 07/20/2023 1:12 PM IRON GUARDRAIL INSTALLER Mass of left breast, unspecified quadrant Breast pain, left from Last 3 Months or Most Recently Relevant to Health Maintenance Results * Diagnostic Mammogram Bilateral w Kenan w Implants (07/20/2023 1:12 PM IRON GUARDRAIL INSTALLER) Anatomical Region Laterality Modality Breast Bilateral Mammography 07/20/2023 1:28 PM IRON GUARDRAIL INSTALLER Impressions 07/20/2023 2:18 PM IRON GUARDRAIL INSTALLER 1. No suspicious mammographic or sonographic abnormality [...] Sarah Carranza M.D. Narrative 07/20/2023 2:18 PM IRON GUARDRAIL INSTALLER EXAMINATION: BILATERAL DIGITAL DIAGNOSTIC MAMMOGRAM INCLUDING CAD [...] Recently Relevant to Health Maintenance Insurance [facility] [place] Care Teams Mushroom Picker Relationship Specialty Start Date End Date Fortino Waters MD [address] [facility] [address] [facility] [address] [place] [id number] PCP - General Internal Medicine 07/20/23 Rosie Edmond NP Nurse Practitioner Nurse Practitioner 02/24/20
--- OUTSIDE RECORDS SUMMARY | 2024-08-14 11:42 | XMS_ITS | Encounter Summary ---
Author Organization [facility] Address [address] [place] [address] Care Team Providers Care Wrapping Checker Name Role Phone Amairani Ferrer NP Primary Care Provider [phone] Encounter Details Date Type Department Care Team (Late st Contact Info) Description 01/28/2022 CeQur Message Enc [facility] Medical Group Family Medicine - [place] [address] [facility] [address] [place] [address] [facility] Provider Referral Social History Tobacco Use Types [...] documented as of this encounter Care Teams Wrapping Checker Relationship Specialty Start Date End Date Amairani Ferrer NP [address] [place] [address] PCP - General NURSE PRACTITIONER 01/27/20 documented as of this encounter
--- OUTSIDE RECORDS SUMMARY | 2024-08-14 11:42 | XMS_ITS | Encounter Summary ---
Author Organization [facility] Address [address] [place] [address] Care Team Providers Care Child Day Care Teacher Name Role Phone Amairani Ferrer NP Primary Care Provider [phone] Encounter Details Date Type Department Care Team (Late st Contact Info) Description 06/05/[address] [facility] [place], [place] [address] Braden Ching MD [address] [id number] Social History Tobacco Use Types Packs/Day Years [...] COVID-19? No / Unsure 05/28/2020 2:02 PM BIRTH ATTENDANT documented as of this encounter Plan of Treatment Not on file documented as of this encounter Visit Diagnoses Diagnosis Family history of colon cancer- Primary Family history of malignant neoplasm of gastrointestinal tract documented in this encounter Additional Health Concerns Infection Onset Date Last Indicated Resolved Time COVID-19 Rule Out 06/15/2020 06/15/2020 06/16/2020 3:01 PM BIRTH ATTENDANT Assessment Noted Time PHQ-9 Depression Total Score: 0 01/28/20 8:38 AM CDT documented as of this encounter Care Teams Child Day Care Teacher Relationship Specialty Start Date End Date Amairani Ferrer NP [address] [place] [address] PCP - General NURSE PRACTITIONER 01/27/20 documented as of this encounter
== END 2024-08-14 10:22 | disposition home or self-care (01) ==
PROVIDERS: PCP Internal Medicine; Visit Provider Internal Medicine
DX: M79.662 Pain in left lower leg (principal); M79.661 Pain in right lower leg
CPT/HCPCS: 93970

== ENCOUNTER 2024-11-06 08:02 | Outpatient (CLI) | payer BC, SELFPAY ==
[2024-11-06 08:34] LABS: Basophils Absolute Auto 0.1 K/mm3 (0.0-0.1); Basophils Percent Auto 1.4 % (0.2-1.2); Eosinophils Absolute Auto 0.3 K/mm3 (0-0.3); Eosinophils Percent Auto 5.5 % (0-4.4); Hematocrit 39.9 % (37.0-47.0); Hemoglobin 12.9 g/dL (12.0-15.0); Immature Granulocyte Absolute 0.01 K/mm3 (0.00-0.031); Immature Granulocyte Percent A 0.2 % (0-0.5); Lymphocytes Absolute Auto 1.42 K/mm3 (0.9-3.2); Lymphocytes Percent Auto 29.1 % (18.3-44.2); Mean Corpuscular HGB Conc 32.3 g/dl (32-36); Mean Corpuscular Hemoglobin 30.3 pg (26-34); Mean Corpuscular Volume 93.7 fl (80-100); Mean Platelet Volume 10.3 fl (7.4-10.4); Monocytes Absolute Auto 0.5 K/mm3 (0.1-0.6); Monocytes Percent Auto 9.8 % (2.6-8.5); Neutrophils Absolute Auto 2.6 K/mm3 (1.3-6.7); Platelet Count Result 231 k/mm3 (150-375); Red Blood Count 4.26 M/mm3 (4.2-5.4); Red Cell Distribution Width 12.5 % (11.5-14.5); White Blood Count 4.9 K/mm3 (4.5-10.0)
[2024-11-06 08:50] LABS: Alanine Aminotransferase 21 U/L (6-35); Albumin Level 4.1 g/dL (3.5-5.1); Alkaline Phosphatase 43 U/L (38-126); Anion Gap 6 mmol/L (4-12); Aspartate Amino Transferase 31 U/L (14-36); Bilirubin,Total 0.5 mg/dL (0.2-1.3); Blood Urea Nitrogen 16 mg/dL (7-17); Calcium 9.1 mg/dL (8.4-10.2); Carbon Dioxide 28 mmol/L (22-30); Chloride 106 mmol/L (98-107); Cholesterol 150 mg/dL (0-200); Estimated Glomerular Filt Rate > 60; Glucose 95 mg/dL (65-110); HDL Direct 60 mg/dL; Sodium 140 mmol/L (137-145); Total Protein 7.1 g/dL (6.3-8.2); Triglycerides 49 mg/dL (<150)
[2024-11-06 09:01] LABS: LDL Cholesterol Direct 67 mg/dL
[2024-11-06 10:54] LABS: Free T4 Free Thyroxine 0.79 ng/dL (0.78-2.19); Vitamin D 25 Hydroxy 37.6 ng/mL
== END 2024-11-06 08:03 | disposition home or self-care (01) ==
LOC: ANHLAB 08:03
PROVIDERS: PCP Internal Medicine; Visit Provider Internal Medicine
DX: Z13.220 Encounter for screening for lipoid disorders (principal); E55.9 Vitamin D deficiency, unspecified; E03.9 Hypothyroidism, unspecified; D70.9 Neutropenia, unspecified; Z79.899 Other long term (current) drug therapy
CPT/HCPCS: 36415; 80053; 80061; 82306; 84439; 84443; 85025

== ENCOUNTER 2025-01-20 16:58 | Outpatient (CLI) | payer BC, SELFPAY ==
--- OUTSIDE RECORDS SUMMARY | 2022-05-30 09:45 | XMS_ITS | Continuity of Care Document ---
Author Organization [facility] Address [address] [place] [address] Phone Care Team Providers Care Multifocal Lens Assembler Name Role Phone Gerardo Betancourt MD Unavailable Unavailable Allergies, Adverse Reactions, Alerts Substance Reaction Status Criticality No Known Allergies Active No Inform ation Medications Medication Instructions Dosage Effective Dates (start - stop) Status Comments levothyroxine 25 mcg capsule take 1 capsule by oral route every day 25 MCG - Active Procedures Procedure Date RADEX KNE COMPL 4/MORE VIEWS OFFICE/OUTPATIENT VISIT NEW OFFICE/OUTPATIENT VISIT EST OFFICE/OUTPATIENT VISIT NEW Advance Directives Directive Yes / No Effective Date File Name No Information Encounters Encounter Description Practice Location Reason(s) For Visit Diagnoses Date Provider Providers Copied on Encounter OFFICE/OUTPAT IENT VISIT NEW [facility], [address], [place], [address], [place] tel:[phone] [facility] Pain in right kneeInternal derangement of right knee 3 Serafin Carrillo. [address], [place], [place], [id number] , [place]. tel: [phone] OFFICE/OUTPAT IENT VISIT EST [facility], [address] [place] [address] [address], [place], [address], [place] tel:[phone] [facility] Other internal derangements of right knee 3-201 6 Felecia Emmanuel. [address] [place] [address], [id number] . tel: [phone] OFFICE/OUTPAT IENT VISIT [facility], [address], [place], [address], [place] tel:[phone] [facility] Other internal derangements of right knee 6 Felecia Emmanuel. [address] [place], [place], [id number] . tel: [phone] Family History Family Member Type Diagnosis Age At Onset Brother Problem Sarcoma Mother Problem Thyroid disorder Father Problem Cardiovascular disease Mother Problem (finding) Alive and well Payers Payer name Insurance type Covered constitution party ID Authortoneya helena(s) Blue Access PPO E2 OT [id number] Social History Type Description Quantity Date Captured Comments Alcohol Use Details beer & wine Caffeine Use Details Unknown Tobacco Use Status Ex-cigarette smoker 023 Smoking Status Former smoker Smoking Tobacco Use Details Cigarette: Age Stopped: 22 Cigarette: No Details Available Sex Female Vital Signs Date / Time: Height Weight BMI Pulse Rate Blood Pressure Temperature Respiratory Rate Body Surface Area Head Circumference Head Circ. Percentile Wt./Mitch. Percentile BMI percentile Pulse Ox Inhaled Ox 3:31 PM 66.00 in 68.039 kg (150.00 lbs) 24.2 1 kg/m eter (2) Chief Complaint And Reason For Visit No Information Reason For Referral Reason For Referral No Information Plan Of Treatment Date Type Action Status Referral Ordered: MRI JT Lower w/o Contrast RT knee Appointment date/timeframe: 05/31/2022 ordered Referral Ordered: RADEX KNE COMPL 4/MORE VIEWS RT ordered Referral Ordered: MRI ANY JT LXTR C-MATRL Appointment date/timeframe: 03/15/2016 ordered History Of Present Illness Encounter Date Complaint History Of Prese nt Illness No Information Functional Status Date Functional Assessmen t No Information Instructions Date Instruction Additional Infor mation Elevate extremity above heart. R elated to Rupture of anterior cruciate ligament of right knee, initial encounter Apply ice as tolerated. Related to Rupture of anterior cruciate ligament of right knee, initial encounter Assessments Type Assessment Date assessment Pain in right knee assessment Internal derangement of right kn ee Patient Care Teams Name Effective Dates (start - stop) Status Members No Information
--- NOTE | ~2025-01-20 | XR_ITS ---
EXAMINATION: XR hand LT min 3V, 01/20/2025 17:03 CDT HISTORY: M79.642 - Pain in left hand, bruising/swelling COMPARISON: No comparisons available. Findings: No acute fracture or malalignment. No significant degenerative changes. Soft tissues unremarkable. Impression: No acute fracture or malalignment. Reviewed, dictated and finalized at location A. Impression: No acute fracture or malalignment.
--- OUTSIDE RECORDS SUMMARY | 2025-01-20 17:01 | XMS_ITS | Encounter Summary ---
Author Organization [facility] Address [address] [place] [address] Care Team Providers Care Mold Sander Name Role Phone Amairani Ferrer NP Primary Care Provider [phone] Encounter Details Date Type Department Care Team (Late st Contact Info) Description 06/15/2020 Prep for Procedure [facility] [place], [place] [id number] Braden Ching MD [address] [id number] Social History Tobacco Use Types Packs/Day Years [...] COVID-19? No / Unsure 06/18/2020 8:52 AM CATTLE DEHORNER documented as of this encounter Plan of Treatment Not on file documented as of this encounter Results * PRE-SURGICAL/PRE-PROCEDURE CORONAVIRUS (COVID 19) (06/15/2020 9:00 AM CATTLE DEHORNER) CORONAVIRUS SARS COV 2 PCR (RESP) NOT DETECTED NOT DETECTED 06/16/2020 3:01 PM CATTLE DEHORNER [facility] Comment: A Not Detected (negative) test result [...] providers and patients using the following websites: https://www.[employer].com/home/Covid-19/HCP/[facility]/fact- sheet.html https://www.[employer]/home/Covid-19/Patients/ [employer]/fact-sheet.html This test has been authorized by the FDA under an Emergency Use Authorization (EUA) for use by authorized laboratories. Due to the current public health emergency, [facility] is receiving a high volume of samples [...] about COVID-19 can be found at the [facility] website: www.[employer].com/Covid19. Test performed at [facility] [address] [place] [phone] Director: RAMAKRISHNA PASTRANA DO,MPH FIRST TEST NO 06/15/2020 10:15 AM CATTLE DEHORNER [facility] EMPLOYED IN HEALTHCARE YES 06/15/2020 10:15 AM CATTLE DEHORNER [facility] SYMPTOMATIC DEFINED BY CDC NO 06/15/2020 10:15 AM CATTLE DEHORNER [facility] DATE OF SYMPTOM ONSET NO 06/15/2020 10:20 AM [facility] HOSPITALIZATION STATUS NO 06/15/2020 10:15 AM [facility] PATIENT IN ICU NO 06/15/2020 10:15 AM [facility] RESIDENT OF [facility] NO 06/15/2020 10:15 AM CATTLE DEHORNER [facility] NOT 06/15/2020 10:15 AM [facility] PATIENT'S RACE WHITE OR 06/15/2020 10:15 AM [facility] ETHNICITY NONHISPANIC 06/15/2020 10:15 AM [facility] SOURCE (QST) NASOPHARYNGEAL SWAB 06/15/2020 10:15 AM [facility] NASOPHARYNGEAL SWAB / Unknown 06/15/2020 9:00 AM CATTLE DEHORNER us Braden Ching MD MICROBIOLOGY - GENERAL ORDERABLE S Final Result [facility] [address] [place] [address], [place] [phone] [facility] [address] [place] [address], [place] documented in this encounter Visit Diagnoses Diagnosis Colon cancer screening- Primary Special screening for malignant neoplasms, colon documented in this encounter Additional Health Concerns Infection Onset Date Last Indicated Resolved Time COVID-19 Rule Out 06/15/2020 06/15/2020 06/16/2020 3:01 PM CATTLE DEHORNER Assessment Noted Time PHQ-9 Depression Total Score: 0 01/28/20 8:38 AM CDT documented as of this encounter Care Teams Mold Sander Relationship Specialty Start Date End Date Amairani Ferrer NP [address] [place] [address] PCP - General NURSE PRACTITIONER 01/27/20 documented as of this encounter
--- OUTSIDE RECORDS SUMMARY | 2025-01-20 17:03 | XMS_ITS | Encounter Summary ---
Author Organization [facility] Address [address] [place] [address] Care Team Providers Care Coffee Bar Attendant Name Role Phone Amairani Ferrer NP Primary Care Provider [phone] Encounter Details Date Type Department Care Team (Late st Contact Info) Description 12/24/2021 [employer] Message Enc [facility] Family Medicine - [place] [address] [phone] Amairani Ferrer, KITTY [address] [phone] follow up MRI breast Social History Tobacco [...] documented as of this encounter Care Teams Coffee Bar Attendant Relationship Specialty Start Date End Date Amairani Ferrer NP [address] [place] [address] PCP - General NURSE PRACTITIONER 01/27/20 documented as of this encounter
--- OUTSIDE RECORDS SUMMARY | 2025-01-20 17:03 | XMS_ITS | Encounter Summary ---
Author Organization [facility] Address [address] [place] [address] Care Team Providers Care Agriculture Science Teacher Name Role Phone Amairani Ferrer NP Primary Care Provider [phone] Encounter Details Date Type Department Care Team (Late st Contact Info) Description 01/28/2022 [employer] Message Enc [facility] Family Medicine - [place] [address] [facility] [address] [place] [address] [facility] Provider Referral Social History Tobacco Use [...] documented as of this encounter Care Teams Agriculture Science Teacher Relationship Specialty Start Date End Date Amairani Ferrer NP [address] [place] [address] PCP - General NURSE PRACTITIONER 01/27/20 documented as of this encounter
--- OUTSIDE RECORDS SUMMARY | 2025-01-20 17:03 | XMS_ITS | Encounter Summary ---
Author Organization [facility] Address [address] [place] [address] Care Team Providers Care Class C Truck Driver Name Role Phone Amairani Ferrer NP Primary Care Provider [phone] Encounter Details Date Type Department Care Team (Late st Contact Info) Description 12/16/2021 [employer] Message Enc [facility] Medical [facility] Multispecialty Care - [address] [place] [address] [employer], [facility] Provider Lab Results Social History Tobacco [...] documented as of this encounter Care Teams Class C Truck Driver Relationship Specialty Start Date End Date Amairani Ferrer NP [address] [place] [address] PCP - General NURSE PRACTITIONER 01/27/20 documented as of this encounter
--- OUTSIDE RECORDS SUMMARY | 2025-01-20 17:03 | XMS_ITS | Encounter Summary ---
Author Organization [facility] Address [address] [place] [address] Care Team Providers Care Refractory Worker Name Role Phone Rosie Edmond RICE FIELD WORKER Unavailable [phone] Fortino Waters MD Primary Care Provider [phone] Wero Bae MD Unavailable Aft, Lexis Em MD PhD Unavailable [phone] Encounter Details Date Type Department Care Team (Late st Contact Info) Description 01/17/2025 Telephone [facility] Advanced Medicine Radiation Oncology [address] [facility] [place] [address] Alice Poole RN Social History Tobacco Use Types Packs/Day Years Used Date Smoking Tobacco: Former Cigarettes 0.4 6 1 993 - 1998 Passive Smoke Exposure: Past Smokeless Tobacco: Never Alcohol Use Standard Drinks/Week Comments Yes 1 (1 standard drink = 0.6 oz pur e alcohol) AUDIT-C Answer Date Recorded Q1: How often do you have a drink containing alc ohol? 2-4 times a month 01/08/2025 Q2: How many drinks containi ng alcohol do you have on a typical day when you are drinking? 1 or 2 01/08/2025 Q3: How often do you have si x or more drinks on one occasion? Never 01/08/2025 Personal Safety Answer Date Recorded Have you ever been in or are you currently in a harmful physical or emotional relationship or is someone making you feel afraid or unsafe? Denies 11/07/2024 Comments No Sex and Gender Information Value Date Recorded Sex Assigned at Not on file Legal Sex Female 10:22 AM INSIDE CONTRACTOR SALES Gender Identity Not on file Sexual Orientation Not on file documented as of this encounter Miscellaneous Notes * Telephone Encounter - Alice Poole RN - 01/17/2025 4:48 PM CDT Rn called pt for decision on RT. Pt stated that she has decided not to have RT. made aware. documented in this encounter Plan of Treatment Not on file documented as of this encounter Visit Diagnoses Not on filedocumented in this encounter Care Teams Refractory Worker Relationship Specialty Start Date End Date Fortino Waters MD [address] [place] [address] PCP - General Internal Medicine 07/20/23 Rosie Edmond NP Nurse Practitioner Nurse Practitioner 02/24/20 Wero Bae MD [address] [place] [address] Radiation Oncologist Radiation Oncology 01/08/25 Aft, Lexis Em MD PhD [address] [place] [address] [address] [place] [address] Surgeon Surgical Oncology 01/08/25 documented as of this encounter
--- OUTSIDE RECORDS SUMMARY | 2025-01-20 17:03 | XMS_ITS | Clinical Summary ---
Author Organization [facility] Address [address] [place] [address] Care Team Providers Care Receiver Bulk System Name Role Phone DianecharlesRosie MUSIC RESEARCHER Unavailable [phone] Fortino Waters MD Primary Care Provider [phone] Wero Bae MD Unavailable Aft, Lexis Em MD PhD Unavailable [phone] Allergies No known active allergies Medications levonorgestreL (Mirena) IUD 1 each by intrauterine route once Active cyanocobalamin (Vitamin B-12) 1,000 mcg/mL injectionIndica tions:Vitamin B12 Deficiency Inject 1 mL (1,000 mcg total) into the muscle as instructed every 30 (thirty) days 5 Active levothyroxine (SYNTHROID) 88 mcg tabletIndicatio ns:hypothyroidi sm Take 1 tablet (88 mcg total) by mouth floorwalker before breakfast 5 Active amoxicillin 500 mg tablet/capsuleI ndications:Uppe r Respiratory/TJ NT Infection Take 1 tablet/capsule (500 mg total) by mouth 2 (two) times a day Started on 10/23/24 for sinusitis Active acetaminophen (TYLENOL) 500 mg tablet Take 2 tablets (1,000 mg total) by mouth every 6 (six) hours as needed for pain 5 Active oxyCODONE (ROXICODONE) 5 mg immediate release tabletIndicatio ns:Pain Take 1 tablet (5 mg total) by mouth every 4 (four) hours as needed for pain 10 tablet 5 Active Additional Information Patient not taking.Reported on 01/08/2025 HYDROcodone-colette atropine 1-0.3 mg/mL syrup Take 2.5 mL by mouth every 4 (four) hours as needed 0 5 Active Active Problems Problem Noted Date Diagnosed Date Encounter for other preprocedural examination Ductal carcinoma in situ (DCIS) of right breast 09/13/2024 Cancer Staging:Pathologic stage from 11/07/2024:Stage 0(pTis (DCIS), pN0, cM0, ER+, TN: Not Assessed, HER2: Not Assessed) - Signed by Wero Bae MD on 01/08/2025 S/P ACL reconstruction 07/08/2022 Rupture of anterior cruciate ligament of right k nee 06/03/2022 Sprain of medial collateral ligament of right kn ee 06/03/2022 Current tear of lateral cartilage or meniscus of knee 06/03/2022 Right knee pain 06/03/2022 Vitamin D deficiency 08/18/2020 Constipation 05/27/2020 Overview (08/15/2024): Added automatically from request for surgery [id number] Low back pain without sciatica 01/28/2020 Breast mass 09/07/2018 Seborrheic keratosis 01/20/2017 Allergic contact dermatitis 01/20/2017 Abnormal mammogram 08/15/2016 Derangement of knee 03/08/2016 Mechanical complication of i ntrauterine contraceptive device 07/26/2013 Overview (08/15/2024): [facility] compl of intrauterine contraceptive device, init encntr;Recorded Elsewhere: No Location: [facility] Source: EHR Chronic: N Practice ID: [id number] Billable Time: 04:30:00 PM Uses intrauterine device for control 07/25 Overview (08/15/2024): Surveillance of intrauterine contraceptive device;Recorded Elsewhere: No Location: [facility] Source: EHR Chronic: N Practice ID: [id number] Billable Time: 09:15:00 AM Hypothyroidism 07/18/2013 Overview (08/15/2024): Hypothyroidism;Recorded Elsewhere: No Location: [facility] Source: EHR Chronic: N Practice ID: [id number] Billable Time: 08:30:00 AM Encounters Date Type Department Care Team Description 01/17/2025 Telephone [facility] Radiation Oncology [address] [facility] [place] [address] Alice Poole RN 01/08/2025 9:00 AM CDT Consult [facility] Radiation Oncology [address] [place] [address] Wero Bae MD Ductal carcinoma in situ (DCIS) of right breast (Primary Dx) 12/20/2024 Telephone [facility] Radiation Oncology [address] [facility] [place] [address] Wero Bae MD 12/18/2024 Telephone [facility] Radiation Oncology [address] [place] [address] No, Physician 12/18/2024 Orders [facility] [address] [place] [address] [address] [place] [id number] Lexis Mobley MD PhD Ductal carcinoma in situ (DCIS) of right breast (Primary Dx) 12/16/2024 4:30 PM CDT Lab [facility] Floor [address] [place] [address] Ductal carcinoma in situ (DCIS) of right breast 12/16/2024 4:00 PM CDT [facility] [address] [place] [address] Floor [address] [place] [phone] Lexis Mobley MD PhD Ductal carcinoma in situ (DCIS) of right breast (Primary Dx) 11/21/2024 [facility] [address] [place] [address] Floor [address] [place] [phone] Lexis Mobley MD PhD Medical Question/Miscellaneo us 11/20/2024 Telephone [facility] Medicine Surgery [address] [facility] Floor [address] [place] [address] Lexis Mobley MD PhD 11/07/2024 1:11 PM CDT Anesthesia Event [facility] ([facility]) [address] [place] [address] Gilles Huerta MD Thomas, Karen D., NP 11/07/2024 11:10 AM CDT - 11/07/2024 12:15 PM CDT Surgery [facility] ([facility]) [address] [place] [address] Marissa Khan MD BIOPSY BREAST NEEDLE LOCALIZATION 11/07/2024 9:11 AM CDT - 11/07/2024 11:59 PM CDT Hospital Encounter [facility] Breast Imaging [facility] ([facility]) [address] [place] [address] Encounter for other preprocedural examination Discharge Disposition: Discharge to home or self care 11/07/2024 7:43 AM CDT - 11/07/2024 3:08 PM CDT Hospital Encounter [facility] ([facility]) [address] [place] [address] Leandra, Lexis Em MD PhD Marissa Khan MD Encounter for other preprocedural examination (Primary Dx); Ductal carcinoma in situ (DCIS) of right breast Discharge Disposition: Discharge to home or self care 11/07/2024 6:45 AM CDT - 11/07/2024 11:59 PM CDT Hospital Encounter [facility] ([facility]) [address] [place] [address] Encounter for other preprocedural examination Discharge Disposition: Discharge to home or self care 11/01/2024 Telephone [facility] Medicine Surgery [address] [facility] Floor [address] [place] [address] Naveen Goncalves from Last 3 Months Immunizations Immunization Administration Dates Next Due Tdap 01/28/2020 Surgical History Surgery Date Site/Laterality Comments BREAST RECONSTRUCTION 05/15/2019 - 05/14/2020 breast reduction / augmentation ANTERIOR CRUCIATE LIGAMENT REPAIR 07/07/2022 Right BREAST BIOPSY 08/19/2024 Right BIOPSY 05/15/2022 - 05/14/2023 thyroid nodule SECTION 1998 and 2001 BASAL CELL CARCINOMA EXCISION 05/15/2024 - 05/14/2025 Right skin cancer under right eye, om cheek, nad right shoulder OTHER SURGICAL HISTORY 05/15/2002 - 05/14/2003 BREAST AUGMENTATION - silicon implants COLONOSCOPY 05/15/2020 - 05/14/2021 Medical History Medical History Date Comments Thyroid disease hashimotos Breast cancer (HCC) Hypothyroidism Family History Medical History Relation Name Comments Other Brother sarcoma soft tissue sarcoma Brother Lung cancer Father's Sister 1 Lung cancer Father's Sister 2 Breast cancer Mother's Sister ducatl carc inoma Colon cancer Paternal Grandmother Relation Name Status Comments Brother Father's Sister 1 Father's Sister 2 Mother's Sister Paternal Grandmother Social History Tobacco Use Types Packs/Day Years Used Date Smoking Tobacco: Former Cigarettes 0.4 6 1 993 - 1998 Passive Smoke Exposure: Past Smokeless Tobacco: Never Tobacco Cessation:Counseling Given: Not Answered Alcohol Use Standard Drinks/Week Comments Yes 1 [...] on file 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 Gender Identity Not on file Sexual Orientation Not on file Obstetrics History Para Term AB IAB SAB Ectopic Multiple Livin g Live Births 2 2 Date Outcome GA Total Labor Labor/2nd/3rd Weight Sex Type Anes PTL Veronica A1 A5 Name Clin Para Para Last Filed Vital Signs Vital Sign Reading Time Taken Comments Blood Pressure 115/71 01/08/2025 9:15 AM CDT Pulse 51 01/08/2025 9:15 AM CDT Temperature 36.5 C (97.7 F) 01/08/2025 9:15 AM CDT Respiratory Rate 16 01/08/2025 9:15 AM CDT Oxygen Saturation 100% 11/07/2024 2:50 PM CDT Inhaled Oxygen Concentration - - Weight 68.1 kg (150 lb 3.2 oz) 12/16/2024 3:43 P M CDT Height 167.6 cm (5' 6) 01/08/2025 9:15 AM CDT Body Mass Index 24.43 12/16/2024 3:43 PM CDT Plan of Treatment Health Maintenance Due Date Last Done Comments Cervical Cancer Screening 1975 Colon Cancer Screening-Colonoscopy 1975 Depression Screening 1975 Hepatitis C Screening 1975 Hepatitis B Screening 1991 Regular Well Visit/Exam 18-64 1991 Zoster Vaccine (1 of 2) 2023 Influenza Vaccine (#1) 2025 Breast Cancer Screening-Mammogram 08/16/2025 08/16/2024, 07/20/2023, 07/06/2022, Additional history exists DTaP/Tdap/Td Vaccine (2 - Td or Tdap) 01/27/2030 01/28/2020 Pneumococcal vaccine <65 Aged Out No longer eligible based on patient's age to complete this topic Medical Devices Implanted Type Area Water Quality Analyst Device Identifier Shelf Expiration Date Model / Serial / Lot [employer] Marker Breast Ring Shape Radiopaque Nitinol Ultracor Twirl [id number] - [id number] Implanted:Qty: 1 on 08/19/2024 at [facility] [employer] [id number] / / [employer] Ghiatas 20ga 20cm 7cm Beaded Needle Breast Wire Localization [id number] - [id number] Implanted:Qty: 1 on 11/07/2024 at [facility] [employer] [id number] / / Procedures Procedure Name Priority Date/Time Associated Diagnosis Comments FOLLICLE STIMULATING HORMONE Routine 12/16/2024 4:34 PM CDT Ductal carcinoma in situ (DCIS) of right breast RADIOLOGIC EXAMINATION OF SURGICAL SPECIMEN Schedule Routine, Read Routine (OP Routine) 11/07/2024 2:01 PM CDT Encounter for other preprocedural examination SURGICAL PATHOLOGY Routine 11/07/2024 1: 48 PM CDT Ductal carcinoma in situ (DCIS) of right breast LUMPECTOMY 11/07/2024 1:16 PM CDT Ductal carcinoma in situ (DCIS) of right breast Case Notes 11/01 - MISSING DPC. EMAIL SENT. SHAUNNA 11/01 - PER NAVEEN, CHANGE TO DR KHAN. NB Special Needs Faxitron BIOPSY BREAST NEEDLE LOCALIZATION 11/07/2024 1:16 PM CDT Ductal carcinoma in situ (DCIS) of right breast Case Notes 11/01 - MISSING DPC. EMAIL SENT. SHAUNNA 11/01 - PER NAVEEN, CHANGE TO DR KHAN. NB Special Needs Faxitron KENAN POST CLIP PLACEMENT RIGHT IP Routine 11/07/2024 10:22 AM CDT Encounter for other preprocedural examination US GUIDED BREAST LOCALIZATION RIGHT Schedule Routine, Read Routine (OP Routine) 11/07/2024 10:18 AM CDT Encounter for other preprocedural examination CONTRAST ENHANCED DIGITAL MAMMOGRAPHY BILATERAL Schedule Routine, Read Routine (OP Routine) 08/16/2024 4:20 PM CDT History of abnormal mammogram Presence of silicone breast implant Extremely dense tissue of both breasts on mammography Encounter for screening mammogram for malignant neoplasm of breast from Last 3 Months or Most Recently Relevant to Health Maintenance Results * Follicle stimulating hormone (12/16/2024 4:34 PM CDT) FSH 7.7 IUnits/L Comment: Interpretive Data Male: Adults: 1.5 - 12.4 IUnits/L Female: Follicular: 3.5 - 12.5 IUnits/L Ovulation: 4.7 - 21.5 IUnits/L Luteal: 1.7 - 7.7 IUnits/L Postmenopausal: 25.8 - 134.8 IUnits/L Current interpretive data was last revised 2015. Blood 12/16/2024 4:34 PM CDT 12/16/2024 5:10 PM CDT us Lexis Mobley MD PhD LAB BLOOD ORDERABLES Final Result Performing Organization Address City/State/ZIP Co fl Phone Number VIDYA [facility] Department [place] [address] * Radiologic Examination of Surgical Specimen (11/07/2024 2:01 PM CDT) Anatomical Region Laterality Modality Breast N/A Mammography 11/07/2024 2:02 PM CDT Impressions 11/07/2024 2:02 PM CDT Successful ultrasound-guided wire localization of the area of interest within the RIGHT breast. The radiology attending physician has personally reviewed this study, and had reviewed and/or edited this written report and agrees with it. Electronically signed by: Keara Landers M.D. Narrative 11/07/2024 2:02 PM CDT EXAMINATION: RIGHT BREAST NEEDLE LOCALIZATION UTILIZING ULTRASOUND GUIDANCE; RIGHT FULL FIELD DIGITAL MAMMOGRAM WITH DIGITAL BREAST TOMOSYNTHESIS; SURGICAL SPECIMEN RADIOGRAPH HISTORY: 49-year-old woman with RIGHT breast DCIS, presents for wire localization. BREAST PARENCHYMAL COMPOSITION: The breasts are extremely dense, which lowers the sensitivity of mammography. PROCEDURE AND FINDINGS: The procedure was discussed with the patient and informed consent was obtained. After sterile preparation of the skin, 1% lidocaine was utilized for local anesthesia. A hook-wire system was inserted into the area of interest from a lateral approach utilizing sonographic guidance. There was no evidence of significant immediate complication. A two-view RIGHT digital mammogram with digital breast tomosynthesis was performed post procedure demonstrates the wire in expected position. A surgical specimen was subsequently received from the operating room and was imaged using digital radiography. The lesion of interest is included within the surgical specimen. These findings were communicated to the surgeon. The attending radiologist, Dr. Keara Landers M.D., was present throughout the entire procedure. Dr. Parada (diagnostic resident physician in radiology) also participated in this examination. us Lexis Mobley MD PhD IMG MAMMO PROCEDURES Final Result * Surgical pathology (11/07/2024 1:48 PM CDT) Tissue (Breast, excisional biopsy/ partial mastectomy) 11/07/2024 1:48 PM CDT Narrative PATHOLOGY [facility] - 11/12/2024 11:21 AM CDT EPIC results best viewed via link to PDF [facility] [place] [address] Note to Patients: This report may contain a detailed description of human tissue sent by a health care provider to the laboratory for pathologic evaluation. The content of this report is essential for diagnosis and may provide important critical findings. This information may be unfamiliar to patients to review without a medical professional present. It is advised that the patient review this report in the presence of a health care provider who can answer questions and explain the details. SURGICAL PATHOLOGY REPORT FINAL Patient Name: NIKKI MAGAÑA Gender: F : 1975 (Age: 49) Address: [address] [place] [address] Hospital #: [id number] Taken:11/07/2024 Received:11/07/2024 Reported: 11/12/2024 [facility] Service: Surgery Location: Physician(s): MD Fortino Bustamante M.D. Diagnosis: Breast, right, partial mastectomy - Ductal carcinoma in situ, confined to an intraductal papilloma - Estimated extent = 6 mm - Nuclear grade 2/3 by SBR criteria - Cribriform and papillary growth pattern - Surgical margins negative; nearest = 3 mm to anterior - Biopsy site changes - See synoptic report lxs/11/12/2024 11:21 By this signature, I attest that the above diagnosis is based upon my personal examination of the slides(and/or other material indicated in the diagnosis). Mercedes Cade MD PhD Report Electronically Reviewed and Signed Out By Mercedes Cade MD PhD 11/12/2024 11:21:49 Microscopic Description and Comment: Slides from the prior biopsy, [id number], were reviewed. History: The patient is a 49-year-old woman with history of ductal carcinoma in-situ of the right breast. Operative Procedure: Right breast needle localization lumpectomy. Specimen(s) Received: A: Right breast partial mastectomy, short stitch superior long stitch lateral Gross Description: Received in fresh, labeled with the patient s identifiers and Right breast partial mastectomy, short stitch superior long stitch lateral -Collected: 1348 on 11/07/2024 -Received: 1417 on 11/07/2024 -Placed in formalin: 1418 on 11/07/2024 -Cold ischemic time: 30 minutes -Formalin Fixation time: 28 hours -Specimen dimensions: Medial to Lateral: 3.9 cm Superior to Inferior: 2.8 cm Anterior to Posterior: 1.2 cm - Margins inked: Superior: Blue Inferior: Green Anterior: Yellow Posterior: Black -Sectioned: Medial to lateral -Number of slices: Ten -Gross findings: Yellow adipose tissue with a 0.4 cm cavity containing a ring shaped biopsy marking clip -Specimen radiographed: No -Diagram: No -Additional notes: Entirely submitted Summary of sections: A1 Medial end, perpendicular sections A2-A9 Sequential sections from medial to lateral A10 Lateral end, perpendicular sections Jar: 0 11/08/2024 10:15 PA(s): Brittany Kong MS, PA ([facility]) CANCER CASE SUMMARY FOR DUCTAL CARCINOMA IN SITU (DCIS) OF THE BREAST Procedure: Excision (less than total mastectomy) Specimen laterality: Right Tumor site: Not specified Size (extent) of DCIS: Greatest dimension (using gross & microscopic evaluation): at least 6 mm Number of blocks with DCIS: 2 Histologic type: Ductal carcinoma in situ Architectural patterns: Cribriform Papillary Nuclear grade: Grade 2 (intermediate) Necrosis: Not identified Margins: All margins negative for DCIS Distance from closest margin: 3 mm Closest margin: anterior Distance from posterior margin: 4 mm Regional lymph nodes: Not applicable (no regional lymph nodes submitted or found) Pathologic stage classification (pTNM, AJCC 8th Edition): Primary tumor (pT): pTis (DCIS): Ductal carcinoma in situ pN Category: pN not assigned (no nodes submitted or found) The pathologic stage assigned here should be regarded as provisional, and may change after integration of clinical data not provided with this report. CAP VERSION: Breast DCIS 4.4.0.0 By this signature, I attest that the above diagnosis is based upon my personal examination of the slides(and/or other material). Addenda/Procedures The performance characteristics of some immunohistochemical stains, fluorescence in-situ hybridization tests and immunophenotyping by flow cytometry cited in this report (if any) were determined by the Surgical Pathology and Flow Cytometry Departments at [facility] as part of an ongoing quality and reliability engineer program and in compliance with federally mandated regulations drawn from the Clinical Laboratory Improvement Act of 1988 (CLIA '88). Some of these tests rely on the use of analyte specific reagents and are subject to specific labeling requirements by the US Food and Drug Administration. Such diagnostic tests may only be performed in a facility that is certified by the Department of Health and Human Services as a high complexity laboratory under CLIA '88. The FDA has determined that such clearance or approval is not necessary. This test is used for clinical purposes. It should not be regarded as investigational or for research. Nevertheless, federal rules concerning the medical use of analyte specific reagents require that the following disclaimer be attached to the report: This test was developed and its performance characteristics determined by the Surgical Pathology and Flow Cytometry Departments of [facility]. It has not been cleared or approved by the U. S. Food and Drug Administration. IMAGES AND SCANNED DOCUMENTS, IF INCLUDED, ONLY VIEWABLE IN PDF VERSION OF REPORT Marissa Khan MD LAB PATHOLOGY ORDERABLES Final Result PATHOLOGY [facility] [address] [place], [place] [phone] * Kenan Post Clip Placement Right (11/07/2024 10:22 AM CDT) Anatomical Region Laterality Modality Breast Right Mammography 11/07/2024 2:02 PM CDT Impressions 11/07/2024 2:02 PM CDT Successful ultrasound-guided wire localization of the area of interest within the RIGHT breast. The radiology attending physician has personally reviewed this study, and had reviewed and/or edited this written report and agrees with it. Electronically signed by: Keara Landers M.D. Narrative 11/07/2024 2:02 PM CDT EXAMINATION: RIGHT BREAST NEEDLE LOCALIZATION UTILIZING ULTRASOUND GUIDANCE; RIGHT FULL FIELD DIGITAL MAMMOGRAM WITH DIGITAL BREAST TOMOSYNTHESIS; SURGICAL SPECIMEN RADIOGRAPH HISTORY: 49-year-old woman with RIGHT breast DCIS, presents for wire localization. BREAST PARENCHYMAL COMPOSITION: The breasts are extremely dense, which lowers the sensitivity of mammography. PROCEDURE AND FINDINGS: The procedure was discussed with the patient and informed consent was obtained. After sterile preparation of the skin, 1% lidocaine was utilized for local anesthesia. A hook-wire system was inserted into the area of interest from a lateral approach utilizing sonographic guidance. There was no evidence of significant immediate complication. A two-view RIGHT digital mammogram with digital breast tomosynthesis was performed post procedure demonstrates the wire in expected position. A surgical specimen was subsequently received from the operating room and was imaged using digital radiography. The lesion of interest is included within the surgical specimen. These findings were communicated to the surgeon. The attending radiologist, Dr. Keara Landers M.D., was present throughout the entire procedure. Dr. Parada (diagnostic resident physician in radiology) also participated in this examination. Lexis Mobley MD PhD IMG MAMMO PROCEDURES Final Result * US Guided Breast Localization Right (11/07/2024 10:18 AM CDT) Anatomical Region Laterality Modality Breast Right Ultrasound 11/07/2024 2:02 PM CDT Impressions 11/07/2024 2:02 PM CDT Successful ultrasound-guided wire localization of the area of interest within the RIGHT breast. The radiology attending physician has personally reviewed this study, and had reviewed and/or edited this written report and agrees with it. Electronically signed by: Keara Landers M.D. Narrative 11/07/2024 2:02 PM CDT EXAMINATION: RIGHT BREAST NEEDLE LOCALIZATION UTILIZING ULTRASOUND GUIDANCE; RIGHT FULL FIELD DIGITAL MAMMOGRAM WITH DIGITAL BREAST TOMOSYNTHESIS; SURGICAL SPECIMEN RADIOGRAPH HISTORY: 49-year-old woman with RIGHT breast DCIS, presents for wire localization. BREAST PARENCHYMAL COMPOSITION: The breasts are extremely dense, which lowers the sensitivity of mammography. PROCEDURE AND FINDINGS: The procedure was discussed with the patient and informed consent was obtained. After sterile preparation of the skin, 1% lidocaine was utilized for local anesthesia. A hook-wire system was inserted into the area of interest from a lateral approach utilizing sonographic guidance. There was no evidence of significant immediate complication. A two-view RIGHT digital mammogram with digital breast tomosynthesis was performed post procedure demonstrates the wire in expected position. A surgical specimen was subsequently received from the operating room and was imaged using digital radiography. The lesion of interest is included within the surgical specimen. These findings were communicated to the surgeon. The attending radiologist, Dr. Keara Landers M.D., was present throughout the entire procedure. Dr. Parada (diagnostic resident physician in radiology) also participated in this examination. us Lexis Mobley MD PhD IMG MAMMO PROCEDURES Final Result * Contrast Enhanced Digital Mammography Bilateral (08/16/2024 4:20 PM CDT) Anatomical Region Laterality Modality Breast Bilateral Mammography 08/16/2024 4:56 PM CDT Impressions 08/16/2024 4:59 PM CDT Irregular hypoechoic mass with irregular margins and internal vascularity and the site of palpable abnormality in the right breast at the 6 o'clock position 4 cm the nipple is at high suspicion for malignancy. The method of initial detection of finding was provider-detected symptom (Pro). OVERALL FINAL ASSESSMENT: SUSPICIOUS. BI-RADS Category 4C: High suspicion for malignancy. RECOMMENDATION: Ultrasound-guided biopsy of right breast mass. Dr. Pretty Khna discussed the above findings and recommendations with the patient. She is scheduled to return to the [facility] for biopsy 08/19/2024 at 7:00 AM. This facility will contact the referring clinician's office for an order. Dictated by: Pretty Khan MD The radiology attending physician has personally reviewed this study, and had reviewed and/or edited this written report and agrees with it. Electronically signed by: Clarita Del Valle M.D. Narrative 08/16/2024 4:59 PM CDT EXAMINATION: BILATERAL CONTRAST ENHANCED DIGITAL DIAGNOSTIC MAMMOGRAM WITH DIGITAL BREAST TOMOSYNTHESIS; RIGHT BREAST SONOGRAM HISTORY: 49-year-old woman with bilateral silicone breast implants who presents with clinician detected palpable abnormality near the right breast surgical incision site. COMPARISON: Multiple prior mammograms, most recently dated 07/20/2023 TECHNIQUE: Full field digital mammographic views with digital breast tomosynthesis of BOTH breasts were performed including low energy and subtracted views following the uneventful administration of nonionic iodinated intravenous contrast material. Directed ultrasound evaluation of the RIGHT breast was performed. CONTRAST: Optiray, 101 ml BREAST PARENCHYMAL COMPOSITION: The breasts are extremely dense, which lowers the sensitivity of mammography. BACKGROUND PARENCHYMAL ENHANCEMENT: Minimal, symmetric MAMMOGRAM FINDINGS: Low energy images: There are bilateral silicone breast implants. There is a 0.5 cm mass in the lower central right breast. Prominent high density left axillary lymph nodes are noted in keeping with silicone laden lymph nodes. Subtraction images: There is a moderately enhancing mass in the central right breast. This likely corresponds to an area in the inferior right breast on MLO imaged, however there is significant washout of contrast between the 2 image acquisitions. SONOGRAM FINDINGS: Targeted sonographic examination of the right breast at the 6 o'clock position 4 cm from the nipple demonstrates a 0.6 x 0.6 x 0.9 cm irregular hypoechoic mass with angular margins and internal vascularity which corresponds to site of palpable abnormality. Sonographic examination of the right axilla demonstrates morphologically normal-appearing nonenlarged lymph nodes. Procedure Note Clarita Del Valle MD - 08/16/2024 EXAMINATION: BILATERAL CONTRAST ENHANCED DIGITAL DIAGNOSTIC MAMMOGRAM WITH DIGITAL BREAST TOMOSYNTHESIS; RIGHT BREAST SONOGRAM HISTORY: 49-year-old woman with bilateral silicone breast implants who presents with clinician detected palpable abnormality near the right breast surgical incision site. COMPARISON: Multiple prior mammograms, most recently dated 07/20/2023 TECHNIQUE: Full field digital mammographic views with digital breast tomosynthesis of BOTH breasts were performed including low energy and subtracted views following the uneventful administration of nonionic iodinated intravenous contrast material. Directed ultrasound evaluation of the RIGHT breast was performed. CONTRAST: Optiray, 101 ml BREAST PARENCHYMAL COMPOSITION: The breasts are extremely dense, which lowers the sensitivity of mammography. BACKGROUND PARENCHYMAL ENHANCEMENT: Minimal, symmetric MAMMOGRAM FINDINGS: Low energy images: There are bilateral silicone breast implants. There is a 0.5 cm mass in the lower central right breast. Prominent high density left axillary lymph nodes are noted in keeping with silicone laden lymph nodes. Subtraction images: There is a moderately enhancing mass in the central right breast. This likely corresponds to an area in the inferior right breast on MLO imaged, however there is significant washout of contrast between the 2 image acquisitions. SONOGRAM FINDINGS: Targeted sonographic examination of the right breast at the 6 o'clock position 4 cm from the nipple demonstrates a 0.6 x 0.6 x 0.9 cm irregular hypoechoic mass with angular margins and internal vascularity which corresponds to site of palpable abnormality. Sonographic examination of the right axilla demonstrates morphologically normal-appearing nonenlarged lymph nodes. IMPRESSION: Irregular hypoechoic mass with irregular margins and internal vascularity and the site of palpable abnormality in the right breast at the 6 o'clock position 4 cm the nipple is at high suspicion for malignancy. The method of initial detection of finding was provider-detected symptom (Pro). OVERALL FINAL ASSESSMENT: SUSPICIOUS. BI-RADS Category 4C: High suspicion for malignancy. RECOMMENDATION: Ultrasound-guided biopsy of right breast mass. Dr. Pretty Khan discussed the above findings and recommendations with the patient. She is scheduled to return to the [facility] for biopsy 08/19/2024 at 7:00 AM. This facility will contact the referring clinician's office for an order. Dictated by: Pretty Khan MD The radiology attending physician has personally reviewed this study, and had reviewed and/or edited this written report and agrees with it. Electronically signed by: Clarita Del Valle M.D. Jemima Alatorre NP IMG MAMMO PROCEDURES Fi nal Result from Last 3 Months or Most Recently Relevant to Health Maintenance [place] Care Teams Receiver Bulk System Relationship Specialty Start Date End Date Fortino Waters MD [address] [place] [address] PCP - General Internal Medicine 07/20/23 Rosie Edmond NP Nurse Practitioner Nurse Practitioner 02/24/20 Wero Bae MD [address] [facility] [address] [place] [address] Radiation Oncologist Radiation Oncology 01/08/25 Aft, Lexis Em MD PhD [address] [facility] [address] [place] [address] Surgeon Surgical Oncology 01/08/25
--- OUTSIDE RECORDS SUMMARY | 2025-01-20 17:03 | XMS_ITS | Clinical Summary ---
Author Organization [facility] Address [address] [place] [id number] Care Team Providers Care Radiologic Technology Program Director Name Role Phone Amairani Ferrer NP Primary Care Provider [phone] Allergies No known active allergies Medications levonorgestrel [...] (05/27/2020): Added automatically from request for surgery [id number] Constipation 05/27/2020 Overview (05/27/2020): Added automatically from request for surgery [id number] Left breast mass 01/28/2020 Low back pain without sciati ca, unspecified back pain laterality, unspecified chronicity 01/28/2020 Encounter for insertion of c opper intrauterine contraceptive device (IUD) 07/26/2013 Hypothyroidism 07/19/2013 Resolved Problems Problem Noted Date Diagnosed Date Resolved Date Breast mass 09/07/2018 01/28/2020 Immunizations Immunization Administration Dates Next Due Tdap (Adacel) 01/28/2020 [...] 11:08 AM CDT Height 167.6 cm (5' 6) 12/15/2021 11:08 AM CDT Body Mass Index 24.86 12/15/2021 11:08 AM CDT Plan of Treatment Health Maintenance Due Date Last Done Comments Hepatitis B Vaccines (1 of 3 - 19+ 3-dose series) 01/03/1992 Annual Physical 04/02/2022 04/02/2021 Pneumococcal Vaccine: 50+ Years (1 of 1 - PCV) 2023 Zoster Vaccines (1 of 2) 2023 COVID-19 Vaccine (1 - 2023-2 5 season) 2025 Mammogram Screening 07/19/2025 07/20/2023, 06/28/2021 Cervical Cancer [...] HEPATITIS C AB NON-REACT KARLY NON-REACT KARLY [employer] [facility] SIGNAL TO CUTOFF 0.21 <1.00 [facility] [place] [facility] Comment: HCV antibody was non-reactive. There is no laboratory evidence of HCV infection. In most cases, no further action is required. However, if recent HCV exposure is suspected, a test for HCV RNA (test code 64108) is suggested. For additional information please refer to http://education.[employer]/faq/VZY93t6 (This link is being provided for informational/ educational purposes only.) 07/29/2022 9:52 AM CDT 07/29/2022 9:54 AM CDT Narrative [employer] - JOHN ORDERS - 07/30/2022 11:06 AM CDT FASTING:YES FASTING: YES Resulting Agency Comment Performing Organization Information: Site ID: [email or web address] Name: [email or web address] Address: [address] [place] [id number] Director: Paloma Montalvo MD us Amairani Ferrer NP LABORATORY Final Res ult [facility] [employer] - JOHN JUAN C [employer] [facility] [address] [place], [place] [address] * PAP SMEAR WITH HPV (04/23/2021) 04/23/2021 Narrative 04/23/2021 Ordered by an unspecified provider. us Documents Scanned SCANNING Final Result from Last 3 Months or Most Recently Relevant to Health Maintenance Insurance [address] [place], [place] [id number] [place] [address] Care Teams Radiologic Technology Program Director Relationship Specialty Start Date End Date Amairani Ferrer NP [address] [place] [address] PCP - General NURSE PRACTITIONER 01/27/20
== END 2025-01-20 16:59 | disposition home or self-care (01) ==
PROVIDERS: PCP Internal Medicine; Visit Provider Internal Medicine
DX: M79.642 Pain in left hand (principal)
CPT/HCPCS: 73130